=== PATIENT | female | born 1960 | race Caucasian/White ===

== ENCOUNTER 2017-06-08 13:06 | Outpatient (RCR) | payer OTHER, SELFPAY ==
[2017-06-08 13:35] LABS: Absolute Lymphocyte Count 2.46 X10^3/ul (0.83-4.51); Absolute Neutrophil Count 4.1 X10^3/uL (2.0-7.7); Basophil# 0.03 X10^3/uL; Basophil% 0.4 % (0-1); Eosinophil# 0.15 X10^3/uL; Eosinophils% 2.1 % (0-5); Hematocrit 46.2 % (37-47); Hemoglobin 15.4 g/dl (12.0-15.0); Lymphocyte # 2.46 X10^3/ul (4.0); Lymphocyte % 34.3 % (19-41); Mean Corp Hgb Conc 33.3 g/gl (32-36); Mean Corpuscular Volume 95.9 fL (81-99); Mean Platelet Vol. 10.4 fl (6.2-12.0); Monocyte# 0.45 X10^3/uL; Monocyte% 6.3 % (0-10); Neutrophil # 4.08 X10^3/uL (2.7-7.7); Neutrophil % 56.8 % (47-70); Platelet Count 255 K/mm3 (150-450); RBC Distribution Width CV 14.4 % (11.6-14.6); RBC Distribution Width SD 48.5 fl (35.1-43.9); Red Blood Count 4.82 M/mm3 (4.2-5.4); White Blood Count 7.2 K/mm3 (4.4-11.0)
[2017-06-08 13:36] LABS: POSITIVE COUNT NO; POSITIVE DIFFERENTIAL NO; POSITIVE MORPHOLOGY NO
[2017-06-08 13:59] LABS: AST(SGOT) 14 U/L (15-37); Alanine Aminotransfer ALT/SGPT 26 U/L (13-56); Albumin, Serum 3.9 g/dL (3.2-5.0); Alkaline Phosphatase 102 U/L (45-117); Anion Gap 6 (5-15); BUN 7 mg/dL (7-18); BUN/Creat Ratio 8.8 RATIO (10-20); Bilirubin, Direct 0.17 mg/dL (0.00-0.30); Calcium,Total 8.7 mg/dL (8.5-10.1); Chloride 104 mmol/L (98-107); EST Glomerular Filtration Rate 78 mL/min (>60); Est Glom Filt Rate - Afr Amer 95 mL/min (>60); Globulin 3.5 g/dL (2.2-4.2); Glucose 83 mg/dL (74-106); Protein, Total 7.4 g/dL (6.4-8.2); Sodium Level 141 mmol/L (136-145)
[2017-06-10 14:06] LABS: QNTFERON TB Ag Minus Nil Value 0 IU/mL (.); QNTFERON TB Ag Value 0.02 IU/mL (.); QNTFERON TB Mitogen Value > 10.00 IU/mL (.); QNTFERON TB Nil Value 0.02 IU/mL (.)
[2017-06-10 15:00] LABS: QNTIFERON TB Gold Negative (Negative)
== END 2017-06-08 14:00 | disposition home or self-care (01) ==
LOC: LAB 13:06
PROVIDERS: Family Provider Internal Medicine; PCP Internal Medicine; Visit Provider Dermatology
DX: Z79.899 Other long term (current) drug therapy (principal)
CPT/HCPCS: 36415; 80048; 80076; 85025; 86480

== ENCOUNTER → 2017-10-04 12:33 | Outpatient (CLI) | payer OTHER, SELFPAY ==
--- NOTE | 2017-10-04 12:37 | BI_ITS ---
MAMMOGRAPHY - BILATERAL SCREENING REASON FOR EXAM: Female, 57 years old. Routine annual screening examination. PERTINENT HISTORY: Non-contributory. History of ovarian carcinoma. TECHNIQUE: Digital bilateral breast mahesh (3D mammographic acquisition) in the CC and MLO projections. 2-D mediolateral oblique (MLO) and craniocaudad (CC) views of both breasts were obtained. CAD: Full Field Digital Mammography with Computer Added Detection was performed. COMPARISON: Comparison is made with prior study dated June 30, 2014 and December 24, 2009. FINDINGS: Breast Composition: The breasts are heterogeneously dense, which may obscure small masses. There are no dominant masses or suspicious calcifications. No other significant abnormalities are identified. There has been no significant change since the prior study. BI/SCREENING MAMM (CAD), BILAT IMPRESSION: Stable bilateral screening mammogram. Yearly follow-up mammogram recommended. (A) ASSESSMENT CATEGORY: BIRADS Category 2: Benign. A letter regarding these results will be sent to the patient by the facility within 30 days. Approximately 10% of breast cancers are not detected by mammography. A normal mammogram should not delay biopsy of a clinically suspicious abnormality. [id number] Electronically Signed: Zechariah Gilmore MD at 14:31 EDT Tel [phone], Service support ,
== END ==
PROVIDERS: Family Provider Family Medicine; PCP Family Medicine
DX: Z12.31 Encounter for screening mammogram for malignant neoplasm of breast (principal)
CPT/HCPCS: 77063; 77067

== ENCOUNTER → 2019-05-01 10:07 | Outpatient (CLI) | payer OTHER, SELFPAY ==
[2019-05-01 09:45] VITALS: BMI 35.4
[2019-05-01 12:29] LABS: Absolute Lymphocyte Count 2.16 X10^3/uL (0.83-4.51); Absolute Neutrophil Count 3.8 X10^3/uL (2.0-7.7); Basophil# 0.06 X10^3/uL; Basophil% 0.9 % (0-1); Eosinophil# 0.16 X10^3/uL; Eosinophils% 2.4 % (0-5); Hematocrit 46.3 % (37-47); Hemoglobin 15.1 g/dL (12.0-15.0); Lymphocyte # 2.16 X10^3/ul (4.0); Lymphocyte % 32.2 % (19-41); Mean Corp Hgb Conc 32.6 g/dL (32-36); Mean Corpuscular Hgb 29.8 pg (27.0-32.0); Mean Corpuscular Volume 91.3 fL (81-99); Monocyte% 7.5 % (0-10); NRBC Flagged by Analyzer 0 % (0-5); Neutrophil % 56.7 % (47-70); Platelet Count 301 K/mm3 (150-450); RBC Distribution Width CV 12.8 % (11.6-14.6); RBC Distribution Width SD 42.8 fl (35.1-43.9); Red Blood Count 5.07 M/mm3 (4.2-5.4); White Blood Count 6.7 K/mm3 (4.4-11.0)
[2019-05-01 12:40] LABS: AST(SGOT) 20 U/L (15-37); Alanine Aminotransfer ALT/SGPT 37 U/L (13-56); Albumin, Serum 3.7 g/dL (3.2-5.0); Alkaline Phosphatase 85 U/L (45-117); Anion Gap 3 (5-15); BUN 17 mg/dL (7-18); BUN/Creat Ratio 15.5 RATIO (10-20); Calcium,Total 9.6 mg/dL (8.5-10.1); Chloride 105 mmol/L (98-107); Cholesterol 230 mg/dL (200); EST Glomerular Filtration Rate 54 mL/min (>60); Est Glom Filt Rate - Afr Amer 65 mL/min (>60); Globulin 3.8 g/dL (2.2-4.2); Glucose 86 mg/dL (74-106); High Density Lipoprotein 74 mg/dL; Potassium 4.9 mmol/L (3.5-5.1); Protein, Total 7.5 g/dL (6.4-8.2); Sodium Level 140 mmol/L (136-145); Triglycerides 105 mg/dL; Very Low Density Lipoprotein 21 mg/dL (5-40)
== END ==
PROVIDERS: PCP Internal Medicine; Referring Provider Internal Medicine; Visit Provider Internal Medicine
DX: I10 Essential (primary) hypertension (principal); K21.9 Gastro-esophageal reflux disease without esophagitis
CPT/HCPCS: 36415; 80053; 80061; 85025

== ENCOUNTER → 2019-05-14 14:14 | Outpatient (CLI) | payer OTHER, SELFPAY ==
[2019-05-01 09:45] VITALS: BMI 35.4
[2019-05-07 14:33] VITALS: BMI 36.3
--- NOTE | 2019-05-14 14:14 | BI_ITS ---
MAMMOGRAPHY - BILATERAL SCREENING REASON FOR EXAM: Female, 58 years old. Routine annual screening examination. PERTINENT HISTORY: None TECHNIQUE: Digital bilateral breast chantale (3D mammographic acquisition) in the CC and MLO projections. 2-D mediolateral oblique (MLO) and craniocaudad (CC) views of both breasts were obtained. CAD: Full Field Digital Mammography with Computer Added Detection was performed. COMPARISON: None. FINDINGS: Breast Composition: Densitometry lumbar structure Breast thoracentesis images there is an irregular density noted in the middle third of the superior lateral aspect the left breast. This is of uncertain etiology. It could represent focal fibrocystic change, however, underlying tumor cannot been completely excluded and for this reason a targeted left breast ultrasound is recommended for additional evaluation. The right breast is normal. No other significant abnormalities are identified. BI/SCREEN MAMM (CAD) W/CHANTALE BILAT IMPRESSION: Breast thoracentesis images there is a questionable spiculated density seen in the superior lateral aspect of the left breast and a targeted left breast ultrasound is recommended for further violation. ASSESSMENT CATEGORY: FINAL ASSESSMENT: BI-RAD CATEGORY 0 INCOMPLETE: (NEEDS ADDITIONAL IMAGINING EVALUATION) Approximately 10% of breast cancers are not detected by mammography. A normal mammogram should not delay biopsy of a clinically suspicious abnormality. [id number] Electronically Signed: Yakov Tipton, at 17:20 EST Tel , Service support ,
--- NOTE | 2019-05-14 14:17 | BD_ITS ---
STUDY: DUAL ENERGY X-RAY ABSORPTIOMETRY / DXA REASON FOR EXAM: Female, 58 years old. Age of arina- 34, partial hysterectomy age 25. Pat is 231# and 66 and quot; a loss of 3 and quot; per pat. Past hx of smoking. Takes a multi-vit. Exercises a little. TECHNIQUE: Bone Mineral Density (BMD) measurements of lumbar spine and bilateral hips were obtained. COMPARISON: None. FINDINGS: Lumbar Spine (L1-L4): g/cm2 (1.298) / T-score (1.0) / Z-score (2.2) Findings are suggestive of normal bone density with a low fracture risk. Left Femur Total: g/cm2 (0.989) / T-score (0.1) / Z-score (0.8) Left Femoral Neck: g/cm2 (0.946) / T-score (-0.7) / Z-score (0.6) Right Femur Total: g/cm2 (0.916) / T-score (-0.7) / Z-score (0.2) Right Femoral Neck: g/cm2 (0.878) / T-score (-1.1) / Z-score (0.1) BD/Dexa Bone Density Study IMPRESSION: The patient is considered osteopenic as outlined below according to World Ozzie Organization (WHO) criteria with a low fracture risk. Reference Information: The T-score is the number of standard deviations above or below the standard which is normal for young adults at their peak bone mineral density. The World Health Organization (WHO) interprets the T-scores as follows: Above -1 Normal bone density Between -1 and -2.5 Osteopenia Equal to / or below -2.5 Osteoporosis As a practical clinical guideline, osteopenia may be graded as follows: Mild -1 through -1.5 Moderate -1.6 through -2.0 Severe -2.1 through -2.4 The Z-score is the number of standard deviations above or below age-matched controls. A Z-score of less than -1.5 would be considered abnormal. References: 1. NIH Osteoporosis and Related Bone Diseases http://www.osteo.org 2. International Society for Clinical Densitometry http://www.iscd.org 3. National Osteoporosis Foundation http://www.nof.org Electronically Signed: Zechariah Gilmore, at 13:44 EST , Service support ,
== END ==
PROVIDERS: PCP Internal Medicine; Referring Provider Internal Medicine; Visit Provider Internal Medicine
DX: Z12.31 Encounter for screening mammogram for malignant neoplasm of breast (principal); Z78.0 Asymptomatic menopausal state
CPT/HCPCS: 77063; 77067; 77080

== ENCOUNTER → 2019-05-16 12:17 | Outpatient (CLI) | payer OTHER, SELFPAY ==
[2019-05-07 14:33] VITALS: BMI 36.3
--- NOTE | 2019-05-16 12:18 | US_ITS ---
STUDY: ULTRASOUND BREAST - LEFT REASON FOR EXAM: Female, 58 years old. TECHNIQUE: Axial and longitudinal images of the LEFT breast were performed with a high resolution ultrasound transducer. # OF IMAGES: 59 COMPARISON: Recent left breast mammogram obtained on 05/14/2019 FINDINGS: LEFT Breast: There is a lesion in the superior lateral quadrant. The lesion measures 1 cm in size. Clock notation: 1: o''clock position. Distance from nipple: 360 cm. This lesion is hypoechoic and has mildly irregular margins. It corresponds to an irregular density best seen on the left MLO, tomosymphysis images and is of uncertain etiology. It does not have good through transmission. Although it has a heterogeneous internal hypoechoic density and it could represent a cyst and underlying neoplasm cannot be completely excluded. For this reason an ultrasound directed biopsy is recommended for further evaluation Posterior Enhancement: None Posterior Shadowing: None Margins: Regular Echogenicity: Hypoechoic Compression effect on Shape: Cannot be compressed US/Breast Limited Unilateral IMPRESSION: An ill-defined 1 cm irregular hypoechoic lesion is seen in the left breast 1:00 position. Although this could represent a cyst, an underlying malignancy cannot completely excluded and an ultrasound directed breast biopsy is recommended for further evaluation ASSESSMENT CATEGORY: BIRADS Category 4: Suspicious - Biopsy Should Be Considered. A letter regarding these results will be sent to the patient by the facility within 30 days. Electronically Signed: Yakov Danuta, at 16:56 EST Tel , Service support ,
== END ==
PROVIDERS: PCP Internal Medicine; Referring Provider Internal Medicine; Visit Provider Internal Medicine
DX: R92.8 Other abnormal and inconclusive findings on diagnostic imaging of breast (principal)
CPT/HCPCS: 76642

== ENCOUNTER → 2019-05-20 13:52 | Outpatient (CLI) | payer OTHER, SELFPAY ==
[2019-05-07 14:33] VITALS: BMI 36.3
--- NOTE | 2019-05-20 13:53 | CT_ITS ---
STUDY: CT ABDOMEN AND PELVIS WITH CONTRAST REASON FOR EXAM: Female, 58 years old. HX OVARIAN CA, ABD PAIN, RADHA/BSO, BLADDER SLING RADIATION DOSAGE (If Supplied By Facility): CTDIvol = ( 24.61 ) mGy, DLP = ( 1121.23 ) mGycm TECHNIQUE: Transaxial images were obtained from the dome of the diaphragm to the symphysis pubis without oral contrast. Oral and amp;amp;amp; IV Readi-CAT and amp;amp;amp; 100mL Isovue-300 was administered. Sagittal and coronal images were reconstructed. Individualized dose optimization techniques were used for this CT. COMPARISON: December 30, 2015 FINDINGS: The visualized lung bases are unremarkable. The visualized portions of the heart are within normal limits. Nonspecific fatty infiltration of the liver. There is a small cyst in left lobe. Bile ducts are not dilated Normal gallbladder and extrahepatic biliary system. Normal spleen. Normal pancreas. Right adrenal is normal. There is a nodule in left adrenal measuring 1.6 x 2 cm Normal right kidney. Normal left kidney. Normal visualized stomach. Normal small intestine. Diverticular changes of the descending and sigmoid colon without evidence for acute diverticulitis. The appendix is visualized and appears normal. Atherosclerotic changes of the aorta without evidence for aneurysm. Normal inferior vena cava. Normal retroperitoneum. Normal urinary bladder. Postop change status post RADHA/BSO Tiny fat-containing umbilical hernia. Lumbar spine demonstrates moderate spondylosis Stable appearance to left hepatic cyst and left adrenal nodule since prior study. No other significant interval change CT/Abdomen/Pelvis WITH Contrast IMPRESSION: Postop changes status post RADHA/BSO.. Stable appearance to left hepatic cyst and left adrenal nodule. Diverticular disease of the descending and sigmoid colon without evidence for acute diverticulitis. Electronically Signed: Eber Charles MD at 17:12 EST , Service support ,
--- NOTE | 2019-05-20 14:26 | RAD_ITS ---
STUDY: X-RAY CHEST REASON FOR EXAM: Female, 58 years old. Ovarian cancer. TECHNIQUE: Frontal and lateral views of the chest. COMPARISON: 08/28/2014. FINDINGS: The lungs are clear and expanded. There is no demonstrated pleural abnormality. Normal size heart. Normal mediastinum and holly. Normal visualized pulmonary arteries. Normal visualized aortic arch and descending thoracic aorta. Normal visualized thoracic spine. Normal visualized ribs, clavicles, and shoulders. There is no demonstrated abnormality of the visualized soft tissue structures of the upper abdomen. RAD/Chest PA and Lateral IMPRESSION: No definite acute or significant abnormality seen. Electronically Signed: Gómez Vega MD at 14:42 EST , Service support ,
== END ==
PROVIDERS: PCP Internal Medicine; Referring Provider Internal Medicine Medical Oncology; Visit Provider Internal Medicine Medical Oncology
DX: R14.0 Abdominal distension (gaseous) (principal); Z85.43 Personal history of malignant neoplasm of ovary
CPT/HCPCS: 71046; 74177; Q9967

== ENCOUNTER → 2019-06-07 13:26 | Outpatient (CLI) | payer MEDICAID, SELFPAY ==
[2019-05-22 08:42] VITALS: BMI 36.3
[2019-05-28 11:17] VITALS: BMI 36.9
--- NOTE | 2019-06-07 13:35 | US_ITS ---
STUDY: ULTRASOUND BREAST - LEFT REASON FOR EXAM: Female, 58 years old. Ultrasound guided left breast biopsy. TECHNIQUE: Axial and longitudinal images of the LEFT breast were performed with a high resolution ultrasound transducer. # OF IMAGES: 19 COMPARISON: Comparison is made with prior ultrasound of the breast dated May 16, 2019. FINDINGS: LEFT Breast: Under direct sonographic guidance, the surgeon performed core biopsies of the 6 mm x 7 mm x 4 mm hypoechoic nodule at the 1:00 position of the breast at 3 cm from nipple. US/US Breast Biopsy 1st Lesion IMPRESSION: Successful ultrasound-guided breast biopsy. ASSESSMENT CATEGORY: BIRADS Category 2: Benign. A letter regarding these results will be sent to the patient by the facility within 30 days. Electronically Signed: Zechariah Gilmore, at 15:30 EDT , Service support ,
--- NOTE | 2019-06-07 14:10 | PCM.OPRPT ---
Report of Operation Date of Procedure: 06/07/19 Pre-Operative Diagnosis: Left breast mass Post-Operative Diagnosis: Same Surgery/Procedure Performed:: Ultrasound-guided left breast biopsy Type of Anesthesia:: Local Specimen's removed: Left breast mass 1:00 3 cm from the nipple Estimated Blood Loss (mL): Minimal Description of Procedure: Procedure: ultrasound-guided core biopsy Indications: 58 year-old female with partially hypoechoic nodule at 1:00 in the left breast 3 centimeters from the nipple. Risk benefits were discussed the patient and she elected to proceed with ultrasound guided core biopsy with clip placement Description of procedure: Patient was brought into the ultrasound room in the left breast was marked. A timeout was completed verifying correct patient, procedure, site, specially, prior to beginning procedure. The left breast was prepped and draped in usual sterile fashion and using local anesthesia was obtained with 1% lidocaine with epi. The lesion was located with the ultrasound. Small incision was made with 11 blade to introduced the mammotome through the skin. Under ultrasound guidance multiple core samples were obtained using then 13-gauge mammotome and sent in formalin for pathology. The mammotome mammostar clip was then deployed into the biopsy cavity under ultrasound guidance and a picture was taken. Upon completion procedure hemostasis was obtained and a Steri-Strip and OpSite were placed. Patient was then taken to the mammography suite for clip verification. The clip was verified. The patient tolerated the procedure well and was discharged from the breast imaging department good condition. complications: none - Complications none
--- NOTE | 2019-06-07 14:20 | BRBX_PTH ---
PATIENT: DANICA BOBBY LOC: [facility] U#:[id number] AGE/SX: 64/F ROOM: RE06/07/[address]: Dr. Светлана Donaldson MD : 1960 BED: DIS: SPEC #: [id number] RECD: 06/09/19 14:58 STATUS: SCOTT MICHELET #: [id number] NATO: 06/07/19 14:[address]: Светлана Donaldson DEPT: SURGICAL PATHOLOGY RECD BY: Cynthia Garcia ENTERED: 06/10/19 07:50 SP TYPE: BREAST BX OTHR DR: Dr. Felicity Dexter MD Tissues: Left breast, NOS Procedures: Surgery Specimen Level IV HEADER OPERATION: Left breast biopsy PRE-OP DIAGNOSIS: Left breast lesion at 1 o'clock TISSUE SUBMITTED: Left breast 1 o'clock - mostly cystic MICROSCOPIC DIAGNOSIS Left breast, 1 o'clock, core biopsy: Fibrocystic changes, adenosis and intraductal hyperplasia without atypia. Focal microcalcifications. Negative for malignancy. See comment. RUBIA:kun 06/11/19 COMMENT Correlation with clinical, radiologic findings and appropriate follow up are necessary. MICROSCOPIC DESCRIPTION Slides are reviewed. GROSS DESCRIPTION Received in fixative is one container labeled with the patient's name and designated left breast. The specimen consists of multiple elongated fragments of johns-yellow fibroadipose tissue that in aggregate measure 1 x 0.5 x 0.1 cm. The entire specimen is submitted in one cassette. / RUBIA:kun 06/10/19 TC:5 CPT: 72765
== END ==
PROVIDERS: PCP Internal Medicine; Referring Provider Surgery; Visit Provider Surgery
DX: N63.20 Unspecified lump in the left breast, unspecified quadrant (principal)
CPT/HCPCS: 19083; 88305

== ENCOUNTER → 2019-09-19 13:57 | Outpatient (CLI) | payer OTHER, SELFPAY ==
[2019-05-28 11:17] VITALS: BMI 36.9
[2019-09-19 15:15] LABS: Hemoglobin 14.6 g/dL (12.0-15.0); Mean Corp Hgb Conc 31.1 g/dL (32-36); Mean Corpuscular Hgb 29.1 pg (27.0-32.0); Mean Corpuscular Volume 93.8 fL (81-99); Mean Platelet Vol. 11.2 fl (6.2-12.0); Platelet Count 307 K/mm3 (150-450); RBC Distribution Width CV 13.3 % (11.6-14.6); RBC Distribution Width SD 45.3 fl (35.1-43.9); Red Blood Count 5.01 M/mm3 (4.2-5.4); White Blood Count 7.5 K/mm3 (4.4-11.0)
[2019-09-19 16:53] LABS: ALB/GLOB Ratio 0.9 RATIO (0.9-2.4); AST(SGOT) 16 U/L (15-37); Alanine Aminotransfer ALT/SGPT 30 U/L (13-56); Albumin, Serum 3.4 g/dL (3.2-5.0); Alkaline Phosphatase 79 U/L (45-117); Anion Gap 5 (5-15); BUN 14 mg/dL (7-18); Calcium,Total 8.7 mg/dL (8.5-10.1); Chloride 106 mmol/L (98-107); Creatinine, Serum 0.93 mg/dL (0.55-1.02); EST Glomerular Filtration Rate 65 mL/min (>60); Est Glom Filt Rate - Afr Amer 79 mL/min (>60); Globulin 3.6 g/dL (2.2-4.2); Glucose 99 mg/dL (74-106); Potassium 3.4 mmol/L (3.5-5.1); Sodium Level 141 mmol/L (136-145)
[2019-09-20 10:05] LABS: HIV - WCH Non-Reactive (Nonreactive); Hepatitis B Surface Antigen Non-Reactive (Nonreactive); Hepatitis C Antibody Non-Reactive (Nonreactive)
[2019-09-25 20:07] LABS: QNTFERON TB Mitogen Value > 10.00 IU/mL (.); QNTFERON TB Nil Value 0.02 IU/mL (.); QNTFERON TB1+ Ag Value 0.02 IU/mL (.); QNTFERON TB2+ Ag Value 0.02 IU/mL (.)
[2019-09-25 21:15] LABS: Hepatitis B Core Ab Total Negative (Negative); QNTIFERON TB Positive Criteria Negative (Negative)
== END ==
PROVIDERS: PCP Internal Medicine
DX: L40.9 Psoriasis, unspecified (principal)
CPT/HCPCS: 36415; 80053; 85027; 86480; 86703; 86704; 86803; 87340

== ENCOUNTER → 2019-12-18 14:15 | Outpatient (CLI) | payer OTHER, SELFPAY ==
[2019-05-28 11:17] VITALS: BMI 36.9
--- NOTE | 2019-12-18 14:16 | US_ITS ---
STUDY: ULTRASOUND BREAST - LEFT REASON FOR EXAM: Female, 59 years old. Six-month follow-up for biopsy of a nodule at the 1 o''clock position of the breast at 3 cm from the nipple. TECHNIQUE: Axial and longitudinal images of the LEFT breast were performed with a high resolution ultrasound transducer. # OF IMAGES: 96 COMPARISON: Comparison is made with prior ultrasound of the left breast dated 06/07/2019 and 05/16/2019. FINDINGS: LEFT Breast: 3 mm x 5 mm x 3 mm hypoechoic well-defined nodule at the 1 o''clock position breast at 3 cm from nipple. This is unchanged. US/Breast Complete Unilateral IMPRESSION: Stable examination ASSESSMENT CATEGORY: BIRADS Category 2: Benign. A letter regarding these results will be sent to the patient by the facility within 30 days. Electronically Signed: Zechariah Gilmore, at 7:29 EDT , Service support ,
== END ==
PROVIDERS: PCP Internal Medicine; Referring Provider Surgery; Visit Provider Surgery
DX: N63.20 Unspecified lump in the left breast, unspecified quadrant (principal)
CPT/HCPCS: 76641

== ENCOUNTER → 2020-07-21 10:07 | Outpatient (CLI) | payer OTHER, SELFPAY ==
[2020-07-21 09:38] VITALS: BMI 36.9
[2020-07-21 12:20] LABS: Absolute Lymphocyte Count 1.54 X10^3/uL (0.83-4.51); Absolute Neutrophil Count 8.8 X10^3/uL (2.0-7.7); Basophil# 0.06 X10^3/uL; Basophil% 0.5 % (0-1); Eosinophil# 0.03 X10^3/uL; Eosinophils% 0.3 % (0-5); Hematocrit 44.3 % (37-47); Hemoglobin 14.1 g/dL (12.0-15.0); Lymphocyte # 1.54 X10^3/ul (0.83-4.51); Lymphocyte % 13.6 % (19-41); Mean Corp Hgb Conc 31.8 g/dL (32-36); Mean Corpuscular Hgb 29.1 pg (27.0-32.0); Mean Corpuscular Volume 91.3 fL (81-99); Monocyte# 0.81 X10^3/uL; Monocyte% 7.2 % (0-10); NRBC Flagged by Analyzer 0 % (0-5); Neutrophil # 8.79 X10^3/uL (2.7-7.7); Neutrophil % 77.7 % (47-70); Platelet Count 249 K/mm3 (150-450); RBC Distribution Width CV 13.5 % (11.6-14.6); RBC Distribution Width SD 45.9 fl (35.1-43.9); Red Blood Count 4.85 M/mm3 (4.2-5.4); White Blood Count 11.3 K/mm3 (4.4-11.0)
[2020-07-21 12:38] LABS: ALB/GLOB Ratio 0.6 RATIO (0.9-2.4); AST(SGOT) 41 U/L (15-37); Alanine Aminotransfer ALT/SGPT 69 U/L (13-56); Albumin, Serum 2.8 g/dL (3.2-5.0); Alkaline Phosphatase 107 U/L (45-117); Anion Gap 8 (5-15); BUN 16 mg/dL (7-18); BUN/Creat Ratio 15.7 RATIO (10-20); Calcium,Total 9.3 mg/dL (8.5-10.1); Chloride 99 mmol/L (98-107); Creatinine, Serum 1.02 mg/dL (0.55-1.02); EST Glomerular Filtration Rate 59 mL/min (>60); Est Glom Filt Rate - Afr Amer 71 mL/min (>60); Globulin 4.5 g/dL (2.2-4.2); Glucose 103 mg/dL (74-106); Potassium 3.4 mmol/L (3.5-5.1); Protein, Total 7.3 g/dL (6.4-8.2); Sodium Level 135 mmol/L (136-145)
== END ==
PROVIDERS: PCP Internal Medicine; Referring Provider Internal Medicine; Visit Provider Internal Medicine
DX: L03.90 Cellulitis, unspecified (principal)
CPT/HCPCS: 36415; 80053; 85025

== ENCOUNTER 2020-07-29 12:46 | Inpatient (IN) | payer OTHER, SELFPAY ==
[2020-07-29 09:18] VITALS: BMI 36.9
[2020-07-29 12:47] VITALS: BP 178/105; PULSE 89; RESP 15; TEMP 36.7; O2SAT 97; BMI 36.9
--- NOTE | 2020-07-29 13:14 | VDLE_ITS ---
Reason For Study: Pain RIGHT GSV is normal. CFV is compressible, spontaneous, phasic, competent and demonstrates normal augmentation. FV is compressible, spontaneous, phasic, competent and demonstrates normal augmentation. POP V is compressible, spontaneous, phasic, competent and demonstrates normal augmentation. T/P Trunk is compressible. PTV is compressible. RT PerV is compressible. Procedure This is a venous duplex using B-mode, color flow and spectral Doppler. Exam performed portable in ED. Calf veins technically difficult to visualize due to edema and pain. A preliminary report was called and/or faxed to ED. VL/Venous Duplex US, Unilateral Interpretation Summary There is no evidence of right lower extremity deep vein thrombosis. Right great saphenous vein appears patent and compressible segmentally. Technically difficult examination with difficult ability to visualize right calf veins secondary to edema and patient pain Ordering Physician: Hipolito Galo Referring Physician: Felicity Dexter Performed By: Rosina Dawson RVT
--- NOTE | 2020-07-29 13:17 | EX.ED.DYSGE1 ---
HPI History of Present Illness Chief Complaint: Cellulitis Informant: patient Onset/Context/Timing Onset: Days (12) Context: Gradual Onset Timing: Continuous Quality: sore Location: RLE Current Severity: Moderate Maximum Severity: Moderate Worsened by: walking, palpation Relieved by: resting Associated Symptoms Associated Symptoms: subj fevers/chills - last episode 3d ago Narrative Narrative: Patient sent by PCP office for evaluation of cellulitis on right lower extremity and possible admission for IV antibiotics due to failure of outpatient therapy. Patient states the day that the rash started, she went to urgent care and it was on her right medial thigh in addition to her lower leg, was told did look like shingles and put on ibuprofen. She had a follow-up appointment 3 days later with her PCP, they were concerned about the appearance of the erythema and pain distally, put her on doxycycline and Keflex, patient states soon after she started those the area on her right medial thigh resolved. However in the past week, the pain, swelling, redness in the lower leg has continued to worsen and spread proximally. She states she is on Humira injections every week for psoriasis. She takes no other regular medications. [facility] Medical History Anxiety Cancer Cellulitis Chronic bronchitis GERD (gastroesophageal reflux disease) Insomnia Joint pain Neuropathy Psoriasis Seasonal allergies Sinusitis Home Medications acetaminophen 650 mg PO PRN PRN 09/05/16 [History Last Taken Unknown] adalimumab 40 mg/0.4 mL subcutaneous pen kit See Rx Instructions SUBCUT .COMPLEX 07/21/20 [History Last Taken Unknown] multivitamin 1 tab PO DAILY 07/21/20 [History Last Taken Unknown] tramadol 50 mg tablet 50 mg PO Q8H PRN #20 tab 07/21/20 [Rx Last Taken Unknown] Allergy/AdvReac Type Severity Reaction Status Date / Time potassium chloride AdvReac Nausea Verified 07/29/20 12:52 [From K-Tab] chemo drug Allergy Severe swelling Uncoded 07/29/20 12:52 Family History Father Alcoholism Heart disease Myocardial infarction, Onset Age: 55 Mother Lung cancer Mother Osteoporosis Arthritis Hypertension Brother Arthritis Heart disease Myocardial infarction, Onset Age: 50 CVA (cerebral vascular accident) Esophageal cancer Surgical History H/O: hysterectomy History of laparotomy Social History Smoking Status: Current every day smoker alcohol intake: current alcohol intake frequency: holidays/special occasions only substance use type: does not use what type of physical activity do you participate in: none ROS ROS ED Constitutional Constitutional ED: Reports chills, fever(s) and subjective; Denies sweats or weakness Eyes Eyes: Denies change in vision or diplopia ENT ENT ED: Denies rhinorrhea or sore throat Cardiovascular Cardiovascular: Denies chest pain or palpitations Respiratory/Chest Respiratory/Chest: Denies cough or dyspnea Gastrointestinal Gastrointestinal: Denies abdominal pain, diarrhea, nausea or vomiting Genitourinary Genitourinary ED: Denies dysuria or hematuria Musculoskeletal Musculoskeletal: Reports as per HPI and extremity pain; Denies back pain or neck pain Integumentary Reports as per HPI and rash; Denies abscess Neurologic Neurologic: Denies headache(s), paresthesias or weakness Psychiatric Psychiatric: Denies anxiety or suicidal thoughts EXAM Physical Exam Const Vital Signs: 07/29/20 12:47 Temperature 98.0 F Temperature Source Temporal Pulse Rate 89 Respiratory Rate 15 Blood Pressure 178/105 H Blood Pressure Mean 129 Pulse Ox 97 Oxygen Delivery Method Room Air Positive well nourished and well developed General Appearance ED: well developed and NAD HEENT Reports moist mucous membranes normocephalic and atraumatic Eyes PERRL and EOMs intact bilaterally Neck full ROM and supple Resp normal respiratory effort and clear to auscultation bilaterally Cardio regular rate, regular rhythm and no murmurs GI non-tender and non-distended Auscultation: normoactive bowel sounds Palpation: soft Back/Spine no CVA tenderness General Back: other FROM Extremity full ROM and normal capillary refill Extremity Narrative: Edematous right lower extremity to the knee, with dense erythema consistent with acute cellulitis in the right lower leg, circumferential, with associate entertainment editor blanching erythema that has progressed proximally to the knee, the proximal borders are not well circumscribed. There is some erythema in the foot but it is less tender. All compartments soft. There are signs of residual erythema medial thigh but no lesions or scabs. General Extremety ED: Yes edema; Negative for pulses abnormal or tenderness General Extremity: edema; Negative for pulses abnormal Neuro oriented x3, CN's II-XII intact bilaterally and no sensory deficits noted Sensorium / Orientation: awake and alert Motor Exam: strength 5/5 throughout Skin no rashes or lesions noted Skin Narrative: Superficial patch of what patient calls psoriasis right proximal olvera, no abscess or obvious nidus for infection here, there is only very superficial epidermal loss like a ruptured blister that has been healing, the worst of her rash is very distal to this and not around it. Rashes: rashes noted R lower leg Narrative: See above for further description of rash MDM MDM MDM Narrative Medical decision making narrative: I think this rash is consistent with infection, she clearly has failed the oral antibiotic she has been on as an outpatient, doxycycline and cephalexin. Patient has pictures from several days in a row in the past week showing progressively worsening and ascending erythema to her knee. At this point, what is currently visible is inconsistent with zoster. Ultrasound of the right lower extremity was obtained and the preliminary interpretation based on the findings is that there is no DVT. Discussed with hospitalist for admission and IV antibiotics started after we discussed, using Unasyn and clindamycin. Lab Data Attestation: I reviewed the patient's lab results. Labs: Laboratory Results - last 24 hr 07/29/20 07/29/20 07/29/20 13:20 13:20 13:20 WBC 8.8 RBC 4.75 Hgb 13.8 Hct 43.9 MCV 92.4 MCH 29.1 MCHC 31.4 L RDW Std Deviation 45.7 H RDW Coeff of Lillian 13.4 Plt Count 511 H MPV 9.7 Immature Gran % (Auto) 0.600 Neut % (Auto) 66.5 Lymph % (Auto) 23.5 [place] % (Auto) 7.8 Eos % (Auto) 1.0 Baso % (Auto) 0.6 Absolute Neuts (auto) 5.8 Absolute Lymphs (auto) 2.06 Nucleated RBC % 0 PT 11.9 INR 0.9 APTT 29.6 Sodium 136 Potassium 3.8 Chloride 103 Carbon Dioxide 30.0 Anion Gap 3 L BUN 10 Creatinine 0.92 Estim Creat Clear Calc 60.11 Est GFR (MDRD) Af Amer 80 Est GFR (MDRD) Non-Af 66 BUN/Creatinine Ratio 10.9 Glucose 94 Lactic Acid Calcium 8.7 07/29/20 13:20 WBC RBC Hgb Hct MCV MCH MCHC RDW Std Deviation RDW Coeff of Lillian Plt Count MPV Immature Gran % (Auto) Neut % (Auto) Lymph % (Auto) [place] % (Auto) Eos % (Auto) Baso % (Auto) Absolute Neuts (auto) Absolute Lymphs (auto) Nucleated RBC % PT INR APTT Sodium Potassium Chloride Carbon Dioxide Anion Gap BUN Creatinine Estim Creat Clear Calc Est GFR (MDRD) Af Amer Est GFR (MDRD) Non-Af BUN/Creatinine Ratio Glucose Lactic Acid 0.8 Calcium Discharge Plan Triage Chief Complaint: Cellulitis ED Provider: Hipolito Galo Dx/Rx/DC Orders Clinical Impression: Cellulitis of right lower extremity, Failure of outpatient treatment Prescriptions: No Action Humira(CF) Pen 40 mg/0.4 mL pen injector kit See Rx Instructions subcut .COMPLEX RF: 0 multivitamin [Daily Multi-Vitamin] Tablet 1 tab PO DAILY RF: 0 tramadol 50 mg tablet 50 mg PO Q8H PRN (Reason: pain) Qty: 20 RF: 0 acetaminophen 325 MG tablet 650 mg PO PRN PRN (Reason: Pain) RF: 0 Primary Care Provider: Felicity Dexter Referrals: Felicity Dexter MD [Primary Care Provider] - Disposition Disposition: [facility]
--- NOTE | 2020-07-29 13:35 | RAD_ITS ---
STUDY: X-RAY - RIGHT TIBIA AND FIBULA REASON FOR EXAM: Female, 60 years old. Lower extremity swelling. Cellulitis. TECHNIQUE: 2 view(s) of the tibia and fibula were obtained. COMPARISON: None. FINDINGS: Normal visualized tibia. Normal visualized fibula. Diffuse soft tissue edema. RAD/Tibia & Fibula 2 Views IMPRESSION: Diffuse soft tissue edema. Electronically Signed: Zechariah Gilmore MD at 13:46 EDT , Service support ,
[2020-07-29 13:36] LABS: Absolute Lymphocyte Count 2.06 X10^3/uL (0.83-4.51); Absolute Neutrophil Count 5.8 X10^3/uL (2.0-7.7); Basophil# 0.05 X10^3/uL; Basophil% 0.6 % (0-1); Eosinophil# 0.09 X10^3/uL; Hematocrit 43.9 % (37-47); Hemoglobin 13.8 g/dL (12.0-15.0); Lymphocyte # 2.06 X10^3/ul (0.83-4.51); Lymphocyte % 23.5 % (19-41); Mean Corp Hgb Conc 31.4 g/dL (32-36); Mean Corpuscular Hgb 29.1 pg (27.0-32.0); Mean Corpuscular Volume 92.4 fL (81-99); Mean Platelet Vol. 9.7 fl (6.2-12.0); Monocyte# 0.68 X10^3/uL; Monocyte% 7.8 % (0-10); NRBC Flagged by Analyzer 0 % (0-5); Neutrophil # 5.83 X10^3/uL (2.7-7.7); Neutrophil % 66.5 % (47-70); Platelet Count 511 K/mm3 (150-450); RBC Distribution Width CV 13.4 % (11.6-14.6); RBC Distribution Width SD 45.7 fl (35.1-43.9); Red Blood Count 4.75 M/mm3 (4.2-5.4); White Blood Count 8.8 K/mm3 (4.4-11.0)
[2020-07-29 13:46] LABS: International Normalized Ratio 0.9; Partial Thromboplast Time 29.6 Seconds (24.1-36.2); Prothrombin Time (Protime)PT. 11.9 SECONDS (11.7-14.9)
[2020-07-29 13:47] LABS: Anion Gap 3 (5-15); BUN 10 mg/dL (7-18); BUN/Creat Ratio 10.9 RATIO (10-20); Calcium,Total 8.7 mg/dL (8.5-10.1); Chloride 103 mmol/L (98-107); Creatinine, Serum 0.92 mg/dL (0.55-1.02); EST Glomerular Filtration Rate 66 mL/min (>60); Est Glom Filt Rate - Afr Amer 80 mL/min (>60); Estimated Creatinine Clearance 60.11 ml/min; Glucose 94 mg/dL (74-106); Potassium 3.8 mmol/L (3.5-5.1); Sodium Level 136 mmol/L (136-145)
[2020-07-29 14:01] LABS: Lactic Acid 0.8 mmol/L (0.4-1.9)
[2020-07-29] MEDS: Morphine 4 MG/ML Syringe IV (14:52)
[2020-07-29 14:59] VITALS: BP 158/93; PULSE 84; RESP 16; TEMP 36.6; O2SAT 98
--- NOTE | 2020-07-29 14:59 | PCM.HP.STD ---
[facility] - [facility] Date of Admission: 07/29/20 Chief Complaint: Sent from PCPs office for worsening right leg cellulitis. [facility] Narrative DANICA BOBBY, is a 60 F with past medical history as mentioned below was referred to the emergency room by her PCPs office for worsening right leg cellulitis although she has been on p.o. doxycycline and Keflex for a week. Patient started having small spot of a skin rash on her right leg around 8 days ago, started to spread around with redness and she went to urgent care where she was diagnosed with shingles and she was started on ibuprofen. 3 days later, she followed up with her PCP and there was a concern that she may have acute cellulitis of the right leg and she was started on doxycycline and Keflex which has been on for 7 days and completed those antibiotics yesterday. She continued to have increasing swelling and redness of the right leg in spite of antibiotics, increasing pain as well. She complains of right leg pain, dull aching pain, not radiating, 7 out of 10 in severity, aggravated by movement and touch and without relieving factors. She denies fever or chills. She does have a history of psoriasis and she has been on Humira, last injection was 2 weeks ago. In the emergency department, blood pressure was left elevated, other vital signs were stable. Routine blood work was unremarkable. Lactic acid was normal. Venous Doppler of the right leg done and reportedly, it is negative for DVT, official report is pending. Patient is being admitted for acute right lower extremity cellulitis with failure of outpatient treatment. [facility] Medical History (Updated 07/29/20 @ 15:[address] Sheri Lopez MD) Anxiety Cancer Chronic bronchitis GERD (gastroesophageal reflux disease) Insomnia Joint pain Neuropathy Psoriasis Seasonal allergies Home Medications adalimumab 40 mg/0.4 mL subcutaneous pen kit 40 mg SUBCUT .[id number] 07/21/20 [History Last Taken 07/12/20] multivitamin 1 tab PO DAILY 07/21/20 [History Last Taken 07/28/20] tramadol 50 mg tablet 50 mg PO Q8H PRN #20 tab 07/21/20 [Rx Last Taken 07/28/20] calcium carbonate [Caltrate 600] 600 mg PO DAILY 07/29/20 [History Last Taken 07/28/20] ibuprofen 600 mg PO Q4H PRN 07/29/20 [History Last Taken 07/29/20] Allergy/AdvReac Type Severity Reaction Status Date / Time potassium chloride AdvReac Nausea Verified 07/29/20 12:52 [From K-Tab] chemo drug Allergy Severe swelling Uncoded 07/29/20 12:52 Family History Father Alcoholism Heart disease Myocardial infarction, Onset Age: 55 Mother Lung cancer Mother Osteoporosis Arthritis Hypertension Brother Arthritis Heart disease Myocardial infarction, Onset Age: 50 CVA (cerebral vascular accident) Esophageal cancer Surgical History H/O: hysterectomy History of laparotomy Social History Smoking Status: Current every day smoker alcohol intake: current alcohol intake frequency: holidays/special occasions only substance use type: does not use what type of physical activity do you participate in: none ROS Constitutional Constitutional: Denies anorexia, chills, fatigue, fever(s) or malaise Eyes Eyes: Denies blurry vision, change in eye color, change in vision, double vision or eye pain ENT HEENT: Denies ear pain, epistaxis, headache(s), nasal congestion, post nasal drip or sore throat Cardiovascular Cardiovascular: Denies chest pain, dyspnea on exertion, edema, lightheadedness, orthopnea, palpitations, paroxysmal nocturnal dyspnea or syncope Respiratory/Chest Respiratory/Chest: Denies cough, dyspnea, hemoptysis, productive cough, shortness of breath at rest, shortness of breath with exertion or wheezing Gastrointestinal Gastrointestinal: Denies abdominal pain, constipation, diarrhea, hematemesis, hematochezia, melena, nausea or vomiting Genitourinary Genitourinary: Denies burning urination, dysuria, hematuria, urinary hesitancy or urinary urgency Musculoskeletal Musculoskeletal: Reports extremity pain and other Details: Right leg pain, swelling. ; Denies arthralgias, back pain, joint pain, joint swelling, myalgias or neck pain Neurologic Neurologic: Denies confusion, dizziness, focal weakness, headache(s), numbness, paresthesias, seizures, tingling or tremor(s) Psychiatric Psychiatric: Denies anxiety, depression, hallucinations, homicidal ideation or suicidal ideation Endocrine Endocrinology: Denies change in body appearance, cold intolerance, heat intolerance, polydipsia or polyuria Hematologic/Lymphatic Hematologic/Lymphatic: Denies easy bleeding, easy bruising or lymphadenopathy Allergic/Immunologic Allergic/Immunologic: Denies itchy eyes, rhinitis, throat swelling, tongue swelling, hives, urticaria or wheezing Vital Signs Vital Signs Vital Signs: 07/29/20 12:47 Temperature 98.0 F Temperature Source Temporal Pulse Rate 89 Respiratory Rate 15 Blood Pressure 178/105 H Blood Pressure Mean 129 Pulse Ox 97 Oxygen Delivery Method Room Air Physical Exam Const alert, oriented x3, no apparent distress and no limitations General Appearance: cooperative, comfortable and well kempt HEENT normocephalic, head/scalp atraumatic and moist oral mucous membranes Head and Scalp: normocephalic and atraumatic Eyes PERRL, EOMs intact bilaterally, conjunctivae normal and no scleral icterus General Eye: normal appearance of both eyes Periorbital: periorbital findings normal Neck no lymphadenopathy, supple, no meningeal signs, no JVD and no carotid bruits General: trachea midline Thyroid: thyroid normal Resp normal respiratory effort, normal air movement and clear to auscultation bilaterally Auscultation: Negative for crackles, rales, rhonchi or wheezes Cardio regular rate, regular rhythm, S1 normal heart sound, S2 normal heart sound, no murmurs and no JVD Peripheral Pulses: pulses 2+ throughout GI normal to inspection, nondistended, normoactive bowel sounds, soft to palpation, non-tender and non-distended; Negative for hepatosplenomegaly Auscultation: normoactive bowel sounds Extremity full ROM Extremity Narrative: Right leg: Extensive edema and erythema from just below right knee down to the right ankle, no open wounds. Trace edema on the left leg, no erythema. Peripheral Pulses: Yes pulses 2+ throughout Skin no rashes or lesions noted, no wounds and no petechiae Neuro oriented x3, CN's II-XII intact bilaterally and moves all extremities Sensorium / Orientation: alert Speech: speech normal Motor Exam: strength 5/5 throughout Psych mental status grossly normal, affect normal and denies hallucinations Lab / Micro Data Result Diagrams: 07/29/20 13:20 07/29/20 13:20 Labs: Laboratory Results - last 24 hr 07/29/20 07/29/20 07/29/20 13:20 13:20 13:20 WBC 8.8 RBC 4.75 Hgb 13.8 Hct 43.9 MCV 92.4 MCH 29.1 MCHC 31.4 L RDW Std Deviation 45.7 H RDW Coeff of Lillian 13.4 Plt Count 511 H MPV 9.7 Immature Gran % (Auto) 0.600 Neut % (Auto) 66.5 Lymph % (Auto) 23.5 [place] % (Auto) 7.8 Eos % (Auto) 1.0 Baso % (Auto) 0.6 Absolute Neuts (auto) 5.8 Absolute Lymphs (auto) 2.06 Nucleated RBC % 0 PT 11.9 INR 0.9 APTT 29.6 Sodium 136 Potassium 3.8 Chloride 103 Carbon Dioxide 30.0 Anion Gap 3 L BUN 10 Creatinine 0.92 Estim Creat Clear Calc 60.11 Est GFR (MDRD) Af Amer 80 Est GFR (MDRD) Non-Af 66 BUN/Creatinine Ratio 10.9 Glucose 94 Lactic Acid Calcium 8.7 07/29/20 13:20 WBC RBC Hgb Hct MCV MCH MCHC RDW Std Deviation RDW Coeff of Lillian Plt Count MPV Immature Gran % (Auto) Neut % (Auto) Lymph % (Auto) [place] % (Auto) Eos % (Auto) Baso % (Auto) Absolute Neuts (auto) Absolute Lymphs (auto) Nucleated RBC % PT INR APTT Sodium Potassium Chloride Carbon Dioxide Anion Gap BUN Creatinine Estim Creat Clear Calc Est GFR (MDRD) Af Amer Est GFR (MDRD) Non-Af BUN/Creatinine Ratio Glucose Lactic Acid 0.8 Calcium Assessment & Plan Assessment/Plan (1) Cellulitis of right lower extremity: (2) Failure of outpatient treatment: (3) GERD (gastroesophageal reflux disease): (4) Psoriasis: PLAN: This is a 60 years old female patient referred to the ED by her PCPs office for worsening right leg erythema, swelling and pain with failure of outpatient treatment for acute right lower extremity cellulitis. #1 acute right lower extremity cellulitis: With failure of outpatient treatment, patient has been on Keflex and doxycycline for 1 week, completed yesterday. Still having significant erythema, swelling and pain of the right leg. No evidence of sepsis or severe sepsis. Venous Doppler of the right leg showed no DVT, official report is pending. Plan: Admit to MedSurg floor, Tylenol as needed, Zofran as needed, start IV Unasyn and clindamycin, repeat CBC and BMP tomorrow morning, OxyIR as needed for pain, repeat CBC and BMP tomorrow morning, PT OT evaluation and treatment. #2 psoriasis: She has been on Humira injections, last injection was 2 weeks ago. Stable, no acute issues. #3 GERD: Stable, she is not taking medication for it. #4 history of ovarian cancer: Status post surgery, in remission stable. #5 DVT prophylaxis: Subcu Lovenox. This note was generated with [employer] dictation software. It may contain incorrect words, spelling, and punctuation that were not noted in checking the note before signing. Visit Charges Inpatient E&M: 34679 Init Hosp L2
--- NOTE | 2020-07-29 15:01 | ED.RN ---
one set of blood cultures drawn and in lab
[2020-07-29 15:22] VITALS: BMI 34.7
[2020-07-29 15:25] VITALS: BP 188/105; PULSE 83; RESP 18; TEMP 36.7; O2SAT 98
[2020-07-29 16:41] VITALS: BP 149/97; PULSE 81
[2020-07-29] MEDS: oxyCODONE 5 MG Tablet PO (19:27)
[2020-07-29 20:45] VITALS: BP 138/84; PULSE 89; RESP 18; TEMP 36.8; O2SAT 96
[2020-07-30] MEDS: oxyCODONE 5 MG Tablet PO ×4 (00:33→20:51)
[2020-07-30 02:45] VITALS: BP 151/84; PULSE 95; RESP 17; TEMP 37; O2SAT 96
[2020-07-30 05:38] LABS: Absolute Lymphocyte Count 2.25 X10^3/uL (0.83-4.51); Absolute Neutrophil Count 5.6 X10^3/uL (2.0-7.7); Basophil# 0.04 X10^3/uL; Basophil% 0.5 % (0-1); Eosinophil# 0.07 X10^3/uL; Eosinophils% 0.8 % (0-5); Hematocrit 38.1 % (37-47); Hemoglobin 11.9 g/dL (12.0-15.0); Lymphocyte # 2.25 X10^3/ul (0.83-4.51); Lymphocyte % 25.6 % (19-41); Mean Corp Hgb Conc 31.2 g/dL (32-36); Mean Corpuscular Hgb 29.3 pg (27.0-32.0); Mean Corpuscular Volume 93.8 fL (81-99); Mean Platelet Vol. 9.9 fl (6.2-12.0); Monocyte# 0.85 X10^3/uL; Monocyte% 9.7 % (0-10); NRBC Flagged by Analyzer 0 % (0-5); Neutrophil # 5.55 X10^3/uL (2.7-7.7); Neutrophil % 63.1 % (47-70); Platelet Count 422 K/mm3 (150-450); RBC Distribution Width CV 13.6 % (11.6-14.6); RBC Distribution Width SD 46.9 fl (35.1-43.9); Red Blood Count 4.06 M/mm3 (4.2-5.4); White Blood Count 8.8 K/mm3 (4.4-11.0)
[2020-07-30 05:59] LABS: Anion Gap 4 (5-15); BUN 14 mg/dL (7-18); BUN/Creat Ratio 14.6 RATIO (10-20); Calcium,Total 8.4 mg/dL (8.5-10.1); Chloride 102 mmol/L (98-107); Creatinine, Serum 0.96 mg/dL (0.55-1.02); EST Glomerular Filtration Rate 63 mL/min (>60); Est Glom Filt Rate - Afr Amer 76 mL/min (>60); Estimated Creatinine Clearance 62.08 ml/min; Glucose 99 mg/dL (74-106); Potassium 4.1 mmol/L (3.5-5.1); Sodium Level 136 mmol/L (136-145)
[2020-07-30 07:30] VITALS: O2SAT 94
[2020-07-30 08:45] VITALS: BP 134/73; PULSE 80; RESP 18; TEMP 36.7; O2SAT 95
--- NOTE | 2020-07-30 09:20 | CASEMGMT ---
LUCIO NG Assessment: Face to Face with pt for initial transition planning/care coordination assessment. RN HERNANDEZ introduced self and role at [facility], pt voices understanding and consents to assessment. Pt is A/O x4 and answers all questions appropriately at this time. Pt sitting up in bed, just finished breakfast. Care providers, pharmacy, and demographics verified/updated. Admitting Dx: acute right lower extremity cellulitis PCP: [facility] Specialists: highway engineer in [place], [facility] [place] [facility] Insurance: [facility] [id number] Prescription Benefit: yes LW/HPOA: Pt denies having a LW/DPOA LNOK: Keyshawn Peralta, Living Arrangements: Pt lives with in a modular home with 3 steps to enter with a rail. Pt states she is I in ADL's and denies concerns at home. Transportation: Pt drives self and denies concerns with transportation. DME/HHC/SNF: Pt denies having any DME, nor the need for. Pt denies previous HHC or SNF stays. Pt states no concerns with going home at time of dc. Pt states no further concerns/needs. CM to follow. Advised pt to ask CM if any further question/concerns/needs arise, voices understanding. Pt Goal: Home Plan: Home with family support.
[2020-07-30] MEDS: Enoxaparin 40 MG/0.4 ML Syringe SC (10:01)
--- NOTE | 2020-07-30 13:48 | PCM.PN.HOSP ---
Documented by User: Yakov TAVAREZ 07/30/20 15:17 Subjective Subjective Patient is a 60-year-old female comfortably resting in bed, alert and orient x3. Patient reports that her leg pain and swelling have remained the same since admission, despite antibiotic therapy. Denies chest pain, shortness of breath, palpitations, fever, chills, N/V/D. Objective Data Objective Data Vital Signs: Vital Signs Temp Pulse Resp BP Pulse Ox 98.1 F 80 18 134/73 H 95 07/30/20 08:45 07/30/20 08:45 07/30/20 08:45 07/30/20 08:45 07/30/20 08:45 Oxygen Delivery Method Room Air Weight: 228 lb 2.855 oz Body Mass Index (BMI) 34.7 Intake & Output: Intake and Output for Last 24 Hours 07/28/20 07/29/20 07/30/20 23:59 23:59 23:59 Intake Total 744 / 744 698 / 698 Balance 744 / 744 698 / 698 Lab / Micro Data Result Diagrams: 07/30/20 05:18 07/30/20 05:18 Labs: Laboratory Results - last 24 hr 07/29/20 07/30/20 07/30/20 13:20 05:18 05:18 WBC 8.8 RBC 4.06 L Hgb 11.9 L Hct 38.1 MCV 93.8 MCH 29.3 MCHC 31.2 L RDW Std Deviation 46.9 H RDW Coeff of Lillian 13.6 Plt Count 422 MPV 9.9 Immature Gran % (Auto) 0.300 Neut % (Auto) 63.1 Lymph % (Auto) 25.6 [place] % (Auto) 9.7 Eos % (Auto) 0.8 Baso % (Auto) 0.5 Absolute Neuts (auto) 5.6 Absolute Lymphs (auto) 2.25 Nucleated RBC % 0 Sodium 136 Potassium 4.1 Chloride 102 Carbon Dioxide 30.0 Anion Gap 4 L BUN 14 Creatinine 0.96 Estim Creat Clear Calc 62.08 Est GFR (MDRD) Af Amer 76 Est GFR (MDRD) Non-Af 63 BUN/Creatinine Ratio 14.6 Glucose 99 Lactic Acid 0.8 Calcium 8.4 L Radiography Diagnostic Testing: Radiology Impression Venous Doppler Study 07/29/20 13:14 Interpretation Summary There is no evidence of right lower extremity deep vein thrombosis. Right great saphenous vein appears patent and compressible segmentally. Technically difficult examination with difficult ability to visualize right calf veins secondary to edema and patient pain Ordering Physician: Hipolito Galo Referring Physician: Felicity Dexter Performed By: Rosina Dawson RVT Physical Exam Narrative See subjective. Const alert, oriented x3 and no apparent distress HEENT head/scalp atraumatic and moist oral mucous membranes Head and Scalp: normocephalic Eyes PERRL and EOMs intact bilaterally Neck no lymphadenopathy, supple and no JVD Resp normal respiratory effort, no retractions, no use of accessory muscles and clear to auscultation bilaterally Cardio regular rate, regular rhythm, no murmurs and no JVD GI normal to inspection, nondistended, normoactive bowel sounds, soft to palpation, non-tender and non-distended Extremity Right Lower Extremity: lower leg inspection (Erythema and edema) and palpation (Pain to palpation) Skin Skin Narrative: See above for right lower extremity Neuro CN's II-XII intact bilaterally Psych affect normal Assessment & Plan Assessment/Plan (1) Cellulitis of right lower extremity: (2) Failure of outpatient treatment: (3) Psoriasis: (4) GERD (gastroesophageal reflux disease): PLAN: Patient is a 60-year-old male who was admitted to [facility] on 07/29/2020 for right lower extremity cellulitis. Patient currently only on clindamycin. Patient reports no improvement in RLE pain, swelling or redness on current antibiotic regimen. 1) acute cellulitis of the RLE Venous Doppler demonstrates no evidence of DVT in RLE. Right great saphenous vein appears patent and compressible submentally. X-ray of the RLE unremarkable and only demonstrate soft tissue swelling. Plan: Initiate vancomycin, stop Unasyn and Clindamycin. Tylenol as needed, Zofran as needed, repeat CBC and BMP tomorrow morning, OxyIR as needed for pain, repeat CBC and BMP tomorrow morning, PT/OT evaluation and treatment. 2) Psoriasis Stable, last Humira injection 2 weeks ago. 3) GERD Stable, no home PPI regimen. 4) Hx of Ovarian cancer Status post surgery, in remission. DVT Prophylaxis -Lovenox SC Patient seen by Yakov Lay PA-C, under the supervision of Dr. Chen. Documented by User: Dr. Afshin Chen DO 07/30/20 16:27 Objective Data Lab / Micro Data Result Diagrams: 07/30/20 05:18 07/30/20 05:18 Physical Exam Const alert Exam Limitations: no limitations Eyes PERRL Resp normal respiratory effort and clear to auscultation bilaterally Cardio regular rate, regular rhythm, S1 normal heart sound and S2 normal heart sound GI normal to inspection, nondistended, normoactive bowel sounds, non-tender and non-distended Skin Skin Narrative: Murmur and erythema of her distal right lower extremity. Does have a patch on anterior olvera consistent with her psoriasis Neuro Sensorium / Orientation: awake and alert Assessment & Plan Assessment/Plan (1) Cellulitis of right lower extremity: PLAN: Patient seen and examined independently. Data reviewed. I agree with the above note by the physician corporate administrative assistant. Right lower extremity cellulitis: Patient had on 7 days of cephalexin and doxycycline but no improvement. Concern for MRSA so we will discontinue the ampicillin/sulbactam and clindamycin and start the patient on vancomycin. Observe. Consider imaging if her leg gets worse. No woody appearance to suggest necrotizing fasciitis at this point time. Patient clinically otherwise stable. Visit Charges Inpatient E&M: 93846 Subs Hosp L2
[2020-07-30 14:45] VITALS: BP 147/76; PULSE 75; RESP 18; TEMP 36.6; O2SAT 94
--- NOTE | 2020-07-30 15:44 | PCM.RX.CS ---
Consult Pharmacy has been consulted to manage selected antiobiotic: Vancomycin Type of Consult: New start Suspected Infection: Skin/Soft tissue Labs: Sodium 136 mmol/L (136-145) 07/30/20 05:18 Potassium 4.1 mmol/L (3.5-5.1) 07/30/20 05:18 Chloride 102 mmol/L (98-107) 07/30/20 05:18 Carbon Dioxide 30.0 mmol/L (21.0-32.0) 07/30/20 05:18 Anion Gap 4 (5-15) L 07/30/20 05:18 BUN 14 mg/dL (7-18) 07/30/20 05:18 Creatinine 0.96 mg/dL (0.55-1.02) 07/30/20 05:18 Est GFR (MDRD) Af Amer 76 mL/min (>60) 07/30/20 05:18 Est GFR (MDRD) Non-Af 63 mL/min (>60) 07/30/20 05:18 BUN/Creatinine Ratio 14.6 RATIO (10-20) 07/30/20 05:18 Glucose 99 mg/dL (74-106) 07/30/20 05:18 Weight used for dosin kg Goal Trough: 15-20 mcg/mL Pharmacy Plan for Drug Dosing: NEW START IV VANCOMYCIN Consulting Physician: Alireza Indication: Cellulitis of RLE Goal Trough: 15-20 SrCr: 0.96 CrCl: 62 Comments: pt has failed Doxycycline/Keflex as outpatient therapy, and Unasyn/Clindamycin as inpatient therapy Vancomcyin Dose: 2000mg IV x1 loading dose, then 1250mg IV q12h starting 07/31/20 at 0400 Pending Level: 08/01/20 at 0330 Pharmacy Service will continue to monitor and adjust dosing as required. Follow-Up Labs: Trough Vancomycin - 08/01/20 at 0330
[2020-07-30 20:16] VITALS: BP 145/75; PULSE 85; RESP 17; TEMP 36.7; O2SAT 96
[2020-07-31 02:24] VITALS: BP 126/88; PULSE 89; RESP 18; TEMP 36.8; O2SAT 96
[2020-07-31 05:48] LABS: Basophil# 0.06 X10^3/uL; Basophil% 0.9 % (0-1); Eosinophil# 0.06 X10^3/uL; Eosinophils% 0.9 % (0-5); Hematocrit 36.9 % (37-47); Hemoglobin 11.6 g/dL (12.0-15.0); Lymphocyte % 29.5 % (19-41); Mean Corp Hgb Conc 31.4 g/dL (32-36); Mean Corpuscular Hgb 29.2 pg (27.0-32.0); Mean Corpuscular Volume 92.9 fL (81-99); Mean Platelet Vol. 10.2 fl (6.2-12.0); Monocyte# 0.69 X10^3/uL; Monocyte% 10.2 % (0-10); NRBC Flagged by Analyzer 0 % (0-5); Neutrophil # 3.96 X10^3/uL (2.7-7.7); Neutrophil % 58.2 % (47-70); Platelet Count 376 K/mm3 (150-450); RBC Distribution Width CV 13.5 % (11.6-14.6); RBC Distribution Width SD 46.1 fl (35.1-43.9); Red Blood Count 3.97 M/mm3 (4.2-5.4); White Blood Count 6.8 K/mm3 (4.4-11.0)
[2020-07-31 06:08] LABS: Anion Gap 6 (5-15); BUN 10 mg/dL (7-18); BUN/Creat Ratio 13.1 RATIO (10-20); Calcium,Total 8.5 mg/dL (8.5-10.1); Chloride 103 mmol/L (98-107); Creatinine, Serum 0.76 mg/dL (0.55-1.02); EST Glomerular Filtration Rate 82 mL/min (>60); Est Glom Filt Rate - Afr Amer 99 mL/min (>60); Estimated Creatinine Clearance 78.42 ml/min; Glucose 101 mg/dL (74-106); Potassium 3.9 mmol/L (3.5-5.1); Sodium Level 138 mmol/L (136-145)
[2020-07-31 07:45] VITALS: O2SAT 93
[2020-07-31 08:24] VITALS: BP 157/91; PULSE 72; RESP 16; TEMP 36; O2SAT 94
[2020-07-31] MEDS: oxyCODONE 5 MG Tablet PO ×2 (08:34→17:03)
[2020-07-31] MEDS: Enoxaparin 40 MG/0.4 ML Syringe SC (08:35)
--- NOTE | 2020-07-31 13:03 | PN.HOSP_ITS ---
Documented by User: Yakov TAVAREZ 07/31/20 13:11 Subjective Subjective Patient is a 60-year-old female who is resting comfortably in a chair, alert and oriented x3. Patient reports that her right lower extremity pain and swelling is much improved from yesterday and believes that the change in antibiotic is helping her. Denies chest pain, shortness of breath, palpitations, fever, chills, N/V/D. Objective Data Objective Data Vital Signs: Vital Signs Temp Pulse Resp BP Pulse Ox 96.8 F L 72 16 157/91 H 94 07/31/20 08:24 07/31/20 08:24 07/31/20 08:24 07/31/20 08:24 07/31/20 08:24 Oxygen Delivery Method Room Air Weight: 228 lb 2.855 oz Body Mass Index (BMI) 34.7 Intake & Output: Intake and Output for Last 24 Hours 07/29/20 07/30/20 07/31/20 23:59 23:59 23:59 Intake Total 744 / 744 2136 / 2136 1355 / 1355 Balance 744 / 744 2136 / 2136 1355 / 1355 Lab / Micro Data Result Diagrams: 07/31/20 04:55 07/31/20 04:55 Labs: Laboratory Results - last 24 hr 07/31/20 07/31/20 04:55 04:55 WBC 6.8 RBC 3.97 L Hgb 11.6 L Hct 36.9 L MCV 92.9 MCH 29.2 MCHC 31.4 L RDW Std Deviation 46.1 H RDW Coeff of Lillian 13.5 Plt Count 376 MPV 10.2 Immature Gran % (Auto) 0.300 Neut % (Auto) 58.2 Lymph % (Auto) 29.5 [place] % (Auto) 10.2 H Eos % (Auto) 0.9 Baso % (Auto) 0.9 Absolute Neuts (auto) 4.0 Absolute Lymphs (auto) 2.00 Nucleated RBC % 0 Sodium 138 Potassium 3.9 Chloride 103 Carbon Dioxide 29.0 Anion Gap 6 BUN 10 Creatinine 0.76 Estim Creat Clear Calc 78.42 Est GFR (MDRD) Af Amer 99 Est GFR (MDRD) Non-Af 82 BUN/Creatinine Ratio 13.1 Glucose 101 Calcium 8.5 Radiography Diagnostic Testing: Radiology Impression Tibia/Fibula X-Ray 07/29/20 13:35 IMPRESSION: Diffuse soft tissue edema. Electronically Signed: Zechariah Gilmore MD at 13:46 EDT , Service support , Physical Exam Narrative See subjective. Const alert, oriented x3 and no apparent distress HEENT head/scalp atraumatic and moist oral mucous membranes Head and Scalp: normocephalic Eyes PERRL, EOMs intact bilaterally and conjunctivae normal Neck no lymphadenopathy, supple and no JVD Resp normal respiratory effort, no use of accessory muscles and clear to auscultation bilaterally Cardio regular rate, regular rhythm, no murmurs and no JVD GI normal to inspection, nondistended, normoactive bowel sounds, soft to palpation, non-tender and non-distended Extremity Extremity Narrative: Right lower extremity is erythematous, edematous and swollen. RLE appears much improved from yesterday, although still appears acutely inflamed. Skin no rashes or lesions noted, no wounds, skin turgor normal, no jaundice and no petechiae Neuro CN's II-XII intact bilaterally Psych affect normal Assessment & Plan Assessment/Plan (1) Cellulitis of right lower extremity: (2) Failure of outpatient treatment: (3) Psoriasis: (4) GERD (gastroesophageal reflux disease): PLAN: See subjective for patient presentation. On my exam RLE appears improved from yesterday in regards to erythema, tenderness and edema. Given the prolonged nature of patient's cellulitis and failing outpatient antibiotics previously, believe it would be prudent for patient to remain admitted ov [facility]. Anticipate discharge tomorrow. 1) acute cellulitis of the RLE CBC and BMP unremarkable, white count not elevated. Venous Doppler demonstrates no evidence of DVT in RLE. Right great saphenous vein appears patent and compressible submentally. X-ray of the RLE unremarkable and only demonstrate soft tissue swelling. Plan: Continue vancomycin, Tylenol as needed, Zofran as needed, repeat CBC and BMP tomorrow morning, OxyIR as needed for pain, repeat CBC and BMP tomorrow morning, PT/OT evaluation and treatment. 2) Psoriasis Stable, last Humira injection 2 weeks ago. 3) GERD Stable, no home PPI regimen. 4) Hx of Ovarian cancer Status post surgery, in remission. DVT Prophylaxis -Lovenox SC Patient seen by Yakov Lay PA-C, under the supervision of Dr. Chen. Documented by User: Dr. Afshin Chen, 07/31/20 14:40 Objective Data Lab / Micro Data Result Diagrams: 07/31/20 04:55 07/31/20 04:55 Physical Exam Narrative Decreased erythema of the right lower extremity still edematous. Assessment & Plan Assessment/Plan (1) Cellulitis of right lower extremity: PLAN: PLAN: Patient seen and examined independently. Data reviewed. I agree with the above note by the physician assistant men's lacrosse coach. Right lower extremity cellulitis: Improving. Patient had on 7 days of cephalexin and doxycycline but no improvement. Concern for MRSA so we will discontinue the ampicillin/sulbactam and clindamycin and start the patient on vancomycin. Observe. Consider imaging if her leg gets worse. No woody appearance to suggest necrotizing fasciitis at this point time. Patient clinically otherwise stable. Plan is to continue with another day of vancomycin. Consider trimethoprim/sulfamethoxazole versus linezolid upon discharge. Visit Charges Inpatient E&M: 95490 [facility] Hosp L2
[2020-07-31 14:20] VITALS: BP 152/80; PULSE 85; RESP 16; TEMP 36.3; O2SAT 95
[2020-07-31 21:36] VITALS: BP 154/89; PULSE 76; RESP 18; TEMP 36.7; O2SAT 95
[2020-07-31] MEDS: Acetaminophen 325 MG Tablet 650 MG PO (21:44)
[2020-07-31] MEDS: Zolpidem Tartrate 5 MG Tablet PO (23:06)
[2020-08-01 04:02] VITALS: BP 149/96; PULSE 74; RESP 18; TEMP 36.9; O2SAT 92
[2020-08-01] MEDS: Acetaminophen 325 MG Tablet 650 MG PO (04:16)
[2020-08-01] MEDS: 0.9% Saline Lock 10 ML Syringe IV (04:16)
[2020-08-01 04:24] LABS: Vancomycin, Trough Level 18.2 ug/mL (5.0-15.0)
[2020-08-01 05:52] LABS: Absolute Lymphocyte Count 1.85 X10^3/uL (0.83-4.51); Absolute Neutrophil Count 3.8 X10^3/uL (2.0-7.7); Basophil# 0.05 X10^3/uL; Basophil% 0.8 % (0-1); Eosinophil# 0.12 X10^3/uL; Eosinophils% 1.9 % (0-5); Hematocrit 38.7 % (37-47); Hemoglobin 12.1 g/dL (12.0-15.0); Lymphocyte # 1.85 X10^3/ul (0.83-4.51); Lymphocyte % 28.9 % (19-41); Mean Corp Hgb Conc 31.3 g/dL (32-36); Mean Corpuscular Hgb 29.6 pg (27.0-32.0); Mean Corpuscular Volume 94.6 fL (81-99); Monocyte# 0.55 X10^3/uL; Monocyte% 8.6 % (0-10); NRBC Flagged by Analyzer 0 % (0-5); Neutrophil # 3.81 X10^3/uL (2.7-7.7); Neutrophil % 59.5 % (47-70); Platelet Count 369 K/mm3 (150-450); RBC Distribution Width CV 13.2 % (11.6-14.6); RBC Distribution Width SD 45.9 fl (35.1-43.9); Red Blood Count 4.09 M/mm3 (4.2-5.4); White Blood Count 6.4 K/mm3 (4.4-11.0)
[2020-08-01 06:34] LABS: Anion Gap 5 (5-15); BUN 13 mg/dL (7-18); BUN/Creat Ratio 18.1 RATIO (10-20); Calcium,Total 8.6 mg/dL (8.5-10.1); Chloride 105 mmol/L (98-107); Creatinine, Serum 0.72 mg/dL (0.55-1.02); EST Glomerular Filtration Rate 88 mL/min (>60); Est Glom Filt Rate - Afr Amer 106 mL/min (>60); Estimated Creatinine Clearance 82.77 ml/min; Glucose 106 mg/dL (74-106); Potassium 3.9 mmol/L (3.5-5.1); Sodium Level 137 mmol/L (136-145)
[2020-08-01 07:32] VITALS: O2SAT 94
[2020-08-01] MEDS: Enoxaparin 40 MG/0.4 ML Syringe SC (09:48)
[2020-08-01 10:00] VITALS: BP 138/91; PULSE 73; RESP 16; TEMP 36.7; O2SAT 96
--- NOTE | 2020-08-01 10:07 | CT_ITS ---
CT of the right ankle with contrast INDICATION: Cellulitis, pain, swelling. TECHNIQUE: Multiple thin section axial CT images the right ankle were obtained after the administration of 100 mL Isovue-370 intravenously and filmed in soft tissue and bone windows. Furthermore, multiple sagittal and coronal reconstructions were performed. Dose limiting techniques were utilized. FINDINGS: There is diffuse skin thickening with edema in the subcutaneous fat and fluid surrounding the musculature of the leg and ankle consistent with a cellulitis or passive congestion. More severe swelling is seen in the dorsum of the foot. No loculated fluid collection to suggest abscess. Normal appearance to the musculature of the distal calf. No acute fracture or dislocation. No lytic or blastic lesions. No bony destruction to suggest osteomyelitis. Normal tibiotalar joint without arthrosis. IMPRESSION: Cellulitis or passive congestion but no abscess or osteomyelitis. Electronically Signed: Bala Reeves MD at 12:35 EDT Tel , Service support , CT/Extremity Lower WITH Contrast
[2020-08-01] MEDS: oxyCODONE 5 MG Tablet PO (10:31)
--- NOTE | 2020-08-01 13:20 | PCM.DC ---
Discharge Instructions Diet Discharge Diet: No restrictions Activity Discharge Activity: Return to Normal Activity Follow Up Care Please Follow Up With: Primary care provider When: Within the next 2 weeks Test Results: Test results from this visit will be discussed in further detail at your follow-up appointment, if applicable. Discharge Plan Admission Admit Date/Time: 07/29/20 14:45 Primary Reason for Your Visit: Cellulitis of the Right Lower Extremity Attending Provider: Afshin Chen Primary Care Provider: Felicity Dexter Discharge Orders/Prescriptions Prescriptions: New sulfamethoxazole-trimethoprim [Bactrim DS] 800-160 mg tablet 1 tab PO BID Qty: 10 RF: 0 oxycodone 5 mg capsule 5 mg PO Q8H PRN (Reason: pain) 5 Days Qty: 15 RF: 0 Continued Humira(CF) Pen 40 mg/0.4 mL pen injector kit 40 mg subcut .2QWEEKS RF: 0 multivitamin [Daily Multi-Vitamin] Tablet 1 tab PO DAILY RF: 0 tramadol 50 mg tablet 50 mg PO Q8H PRN (Reason: pain) Qty: 20 RF: 0 calcium carbonate 600 mg calcium (1,500 mg) Tablet 600 mg PO DAILY RF: 0 ibuprofen 200 mg Tablet 600 mg PO Q4H PRN (Reason: Pain) RF: 0 Referrals / Follow Up: Felicity Dexter MD [Primary Care Provider] - Disposition Disposition (needs filled in before D/C Order can be placed): Home, self care
--- NOTE | 2020-08-01 13:29 | DS.PCM_ITS ---
Providers Date of Admission: 07/29/20 Primary Care Physician: Dr. Felicity Dexter MD Reason For Visit: ACUTE RIGHT LOWER EXTREMITY CELLULITIS Diagnosis Discharge Diagnosis (1) Cellulitis of right lower extremity: Status: Acute Code(s): L03.115 - Cellulitis of right lower limb Medications at Discharge Home Medications adalimumab 40 mg/0.4 mL subcutaneous pen kit 40 mg SUBCUT .2QWEEKS 07/21/20 multivitamin 1 tab PO DAILY 07/21/20 tramadol 50 mg tablet 50 mg PO Q8H PRN #20 tab 07/21/20 calcium carbonate 600 mg PO DAILY 07/29/20 ibuprofen 600 mg PO Q4H PRN 07/29/20 oxycodone 5 mg PO Q8H PRN 5 Days #15 cap 08/01/20 sulfamethoxazole-trimethoprim [Bactrim DS] 1 tab PO BID #10 tab 08/01/20 Hospital Course Summary of Care Provided Minutes Spent on Discharge: 35 Hospital Course: Patient is a 60-year-old female who was admitted to [facility] on 07/29/2020 due to cellulitis of the RLE and failure of outpatient management. On my exam RLE appears improved from yesterday in regards to erythema, tenderness and edema. CT of the right lower extremity was obtained to ensure there was no subcutaneous abscess or osteomyelitis. CT only demonstrated cellulitis and showed no evidence of abscess or osteomyelitis. Patient reports feeling well enough to return home to continue antibiotic therapy. Patient did report development of a possible yeast infection, as she reports cottage cheese in her vaginal area. Denies dysuria, frequency or urgency. Patient given 1 dose of fluconazole before discharge. Recommend to follow-up with primary care provider within the next week in regards to cellulitis and possible yeast infection. 1) acute cellulitis of the RLE CT of the RLE as above. CBC and BMP unremarkable, white count not elevated. Venous Doppler demonstrates no evidence of DVT in RLE, right great saphenous vein appears patent and compressible submentally. X-ray of the RLE unremarkable and only demonstrate soft tissue swelling. Plan: Bactrim x5 days initiated on discharge, OxyIR 5 mg p.o. every 8 as needed x5 days initiated on discharge. Follow-up with primary care provider within the next 1 to 2 weeks. 2) Psoriasis Stable, last Humira injection 2 weeks ago. 3) GERD Stable, no home PPI regimen. 4) Hx of Ovarian cancer Status post surgery, in remission. 5) Yeast infection Patient presentation as above. Plan; fluconazole 150 mg p.o. x1 given prior to discharge. Follow-up with primary care provider within the next 1 to 2 weeks. Patient seen by Yakov Lay PA-C, under the supervision of Dr. Chen. Physical Exam Narrative Patient is a 60-year-old female comfortably resting in chair, alert and oriented x3. Patient reports no progression of symptoms from yesterday, reports feeling well enough to go home. Patient feels that her leg has continued to improve from yesterday in regards to redness, swelling and pain. Denies chest pain, shortness of breath, palpitations, fever, chills, N/V/D. Const alert, oriented x3 and no apparent distress HEENT normocephalic, head/scalp atraumatic and hearing grossly normal bilaterally Eyes PERRL, EOMs intact bilaterally and conjunctivae normal Neck no lymphadenopathy, supple and no JVD Resp normal respiratory effort, no retractions, no use of accessory muscles and clear to auscultation bilaterally Cardio regular rate, regular rhythm, no murmurs and no rub GI normal to inspection, nondistended, normoactive bowel sounds, soft to palpation, non-tender and non-distended Extremity normal to inspection and full ROM Extremity Narrative: Mild redness, tenderness to palpation and edema of the RLE, however does appear to be continually improved from yesterday. General Extremity: edema Skin Skin Narrative: See extremity. Neuro CN's II-XII intact bilaterally Psych affect normal ABG / Lab / Microbiology Data Result Diagrams: 08/01/20 05:36 08/01/20 05:36 Laboratory: Laboratory Results - last 24 hr 08/01/20 08/01/20 08/01/20 03:55 05:36 05:36 WBC 6.4 RBC 4.09 L Hgb 12.1 Hct 38.7 MCV 94.6 MCH 29.6 MCHC 31.3 L RDW Std Deviation 45.9 H RDW Coeff of Lillian 13.2 Plt Count 369 MPV 10.0 Immature Gran % (Auto) 0.300 Neut % (Auto) 59.5 Lymph % (Auto) 28.9 [place] % (Auto) 8.6 Eos % (Auto) 1.9 Baso % (Auto) 0.8 Absolute Neuts (auto) 3.8 Absolute Lymphs (auto) 1.85 Nucleated RBC % 0 Sodium 137 Potassium 3.9 Chloride 105 Carbon Dioxide 27.0 Anion Gap 5 BUN 13 Creatinine 0.72 Estim Creat Clear Calc 82.77 Est GFR (MDRD) Af Amer 106 Est GFR (MDRD) Non-Af 88 BUN/Creatinine Ratio 18.1 Glucose 106 Calcium 8.6 Vancomycin Trough 18.2 H Radiography Diagnostic Testing: Radiology Impression Lower Extremity CT 08/01/20 10:07 D/C Instructions Discharge Diet: No restrictions Discharge Activity: Return to Normal Activity Please Follow Up With: Primary care provider When: Within the next 2 weeks Meaningful Use Info Meaningful Use Diagnoses (Choose all that apply): None applicable Discharge Plan Admission Admit Date/Time: 07/29/20 14:45 Primary Reason for Your Visit: Cellulitis of the Right Lower Extremity Attending Provider: Afshin Chen Primary Care Provider: Felicity Dexter Discharge Orders/Prescriptions Prescriptions: New sulfamethoxazole-trimethoprim [Bactrim DS] 800-160 mg tablet 1 tab PO BID Qty: 10 RF: 0 oxycodone 5 mg capsule 5 mg PO Q8H PRN (Reason: pain) 5 Days Qty: 15 RF: 0 Continued Humira(CF) Pen 40 mg/0.4 mL pen injector kit 40 mg subcut .2QWEEKS RF: 0 multivitamin [Daily Multi-Vitamin] Tablet 1 tab PO DAILY RF: 0 tramadol 50 mg tablet 50 mg PO Q8H PRN (Reason: pain) Qty: 20 RF: 0 calcium carbonate 600 mg calcium (1,500 mg) Tablet 600 mg PO DAILY RF: 0 ibuprofen 200 mg Tablet 600 mg PO Q4H PRN (Reason: Pain) RF: 0 Referrals / Follow Up: Felicity Dexter MD [Primary Care Provider] - Disposition Disposition (needs filled in before D/C Order can be placed): Home, self care
[2020-08-01] MEDS: FLUCONAZOLE 150 MG TABLET PO (14:36)
--- NOTE | 2020-08-03 15:53 | CASEMGMT ---
LUCIO NG Discharge Follow-Up Phone Call. Lace: 11 Strata: 3 Discharge Date: 08/01/20 Adm Dx: Acute RLE cellulitis. Attempted discharge f/u phone call. No answer. Non-identifying VM received. Non-descript VM left requesting return call if there are any questions or concerns. Phone number provided. Arben BRITT RN CM
== END 2020-08-01 14:45 | disposition home or self-care (01) | DRG 603 ==
LOC: ED 14:43 → PCU 15:05
PROVIDERS: Physician Assistant; Admitting Provider Hospitalist; Emergency Provider Emergency Medicine; PCP Internal Medicine
DX: L03.115 Cellulitis of right lower limb (principal); L40.9 Psoriasis, unspecified; K21.9 Gastro-esophageal reflux disease without esophagitis; B37.3 Candidiasis of vulva and vagina; F41.9 Anxiety disorder, unspecified; G62.9 Polyneuropathy, unspecified; F17.200 Nicotine dependence, unspecified, uncomplicated; Z85.43 Personal history of malignant neoplasm of ovary; Z79.899 Other long term (current) drug therapy
CPT/HCPCS: 36415; 73590; 73701; 80048; 80202; 83605; 85025; 85610; 85730; 93971; 99251; 99283; J7030; J7040; J7050; Q9967; A4216; G0463; J0295

== ENCOUNTER → 2020-11-03 09:10 | Outpatient (CLI) | payer OTHER, SELFPAY ==
[2020-11-03 08:49] VITALS: BMI 34.7
[2020-11-03 12:23] LABS: AST(SGOT) 12 U/L (15-37); Alanine Aminotransfer ALT/SGPT 26 U/L (13-56); Albumin, Serum 3.7 g/dL (3.2-5.0); Alkaline Phosphatase 82 U/L (45-117); Anion Gap 3 (5-15); BUN 17 mg/dL (7-18); BUN/Creat Ratio 18.3 RATIO (10-20); Calcium,Total 9.1 mg/dL (8.5-10.1); Chloride 106 mmol/L (98-107); Cholesterol 257 mg/dL (200); Creatinine, Serum 0.93 mg/dL (0.55-1.02); EST Glomerular Filtration Rate 65 mL/min (>60); Est Glom Filt Rate - Afr Amer 79 mL/min (>60); Globulin 3.7 g/dL (2.2-4.2); Glucose 89 mg/dL (74-106); High Density Lipoprotein 65 mg/dL; Potassium 4.7 mmol/L (3.5-5.1); Protein, Total 7.4 g/dL (6.4-8.2); Sodium Level 140 mmol/L (136-145); Triglycerides 146 mg/dL; Very Low Density Lipoprotein 29 mg/dL (5-40)
== END ==
PROVIDERS: PCP Internal Medicine; Referring Provider Internal Medicine; Visit Provider Internal Medicine
DX: I10 Essential (primary) hypertension (principal)
CPT/HCPCS: 36415; 80053; 80061

== ENCOUNTER → 2020-12-01 11:47 | Outpatient (CLI) | payer OTHER, SELFPAY ==
[2020-12-01 15:28] LABS: Anion Gap 8 (5-15); BUN 19 mg/dL (7-18); BUN/Creat Ratio 17.8 RATIO (10-20); Calcium,Total 9.5 mg/dL (8.5-10.1); Chloride 103 mmol/L (98-107); Creatinine, Serum 1.07 mg/dL (0.55-1.02); EST Glomerular Filtration Rate 55 mL/min (>60); Est Glom Filt Rate - Afr Amer 67 mL/min (>60); Glucose 96 mg/dL (74-106); Potassium 4.5 mmol/L (3.5-5.1); Sodium Level 139 mmol/L (136-145)
== END ==
PROVIDERS: PCP Internal Medicine; Referring Provider Internal Medicine; Visit Provider Internal Medicine
DX: I10 Essential (primary) hypertension (principal)
CPT/HCPCS: 36415; 80048

== ENCOUNTER 2021-04-27 10:39 | Outpatient (CLI) | payer OTHER, SELFPAY ==
[2021-04-27 13:31] LABS: Anion Gap 9 (5-15); BUN 22 mg/dL (7-18); BUN/Creat Ratio 20.2 RATIO (10-20); Calcium,Total 9.2 mg/dL (8.5-10.1); Chloride 101 mmol/L (98-107); Cholesterol 222 mg/dL (200); Creatinine, Serum 1.09 mg/dL (0.55-1.02); EST Glomerular Filtration Rate 54 mL/min (>60); Est Glom Filt Rate - Afr Amer 65 mL/min (>60); Glucose 96 mg/dL (74-106); High Density Lipoprotein 61 mg/dL; Potassium 4.3 mmol/L (3.5-5.1); Sodium Level 138 mmol/L (136-145); Triglycerides 122 mg/dL; Very Low Density Lipoprotein 24 mg/dL (5-40)
== END 2021-04-27 23:59 | disposition home or self-care (01) ==
LOC: BIMLAB 10:40
PROVIDERS: PCP Internal Medicine; Referring Provider Internal Medicine; Visit Provider Internal Medicine
DX: I10 Essential (primary) hypertension (principal); E78.5 Hyperlipidemia, unspecified
CPT/HCPCS: 36415; 80048; 80061

== ENCOUNTER 2021-06-01 13:35 | Outpatient (CLI) | payer OTHER, SELFPAY ==
--- NOTE | 2021-06-01 13:37 | BI_ITS ---
MAMMOGRAPHY - BILATERAL SCREENING 3-D TOMOSYNTHESIS REASON FOR EXAM: Female, 60 years old. Breast Cancer Screening PERTINENT HISTORY: No significant family history. TECHNIQUE: 2-D mammograms and 3-D Tomosynthesis of the breast (s) were performed. CAD was performed. COMPARISON: 05/14/2019 FINDINGS: The breast composition is heterogeneously dense that can obscure small breast masses. Scattered benign calcifications are seen. No dense spiculated masses or suspicious microcalcifications are identified. No architectural distortion is identified. There is no skin thickening or retraction. There has been no significant change since the prior study. BI/SCRN MAMM (CAD)W/CHANTALE BILAT IMPRESSION: No mammographic signs of malignancy. Routine yearly mammograms recommended. ASSESSMENT CATEGORY: BIRADS Category 1: Negative. A letter regarding these results will be sent to the patient by the facility within 30 days. FOLLOW UP RECOMMENDATION: Yearly follow up mammogram recommended. (A) Approximately 10% of breast cancers are not detected by mammography. A normal mammogram should not delay biopsy of a clinically suspicious abnormality. Electronically Signed: Bala Reeves MD at 17:49 EDT ,
== END 2021-06-01 23:59 | disposition home or self-care (01) ==
LOC: OPBI 13:35
PROVIDERS: PCP Family Medicine; Referring Provider Internal Medicine; Visit Provider Internal Medicine
DX: Z12.31 Encounter for screening mammogram for malignant neoplasm of breast (principal)
CPT/HCPCS: 77063; 77067

== ENCOUNTER 2021-09-15 08:20 | Emergency (ER) | payer OTHER, SELFPAY ==
[2021-09-15 08:22] VITALS: BP 159/111; PULSE 65; RESP 16; TEMP 36.5; O2SAT 96; BMI 33.8
[2021-09-15 08:25] VITALS: O2SAT 96
[2021-09-15 08:31] VITALS: BP 158/104
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
[2021-09-15] MEDS: 0.9% Normal Saline 1,000 ML 150 ML IV (09:15)
[2021-09-15] MEDS: Ondansetron 4 MG/2 ML Vial IV (09:16)
[2021-09-15] MEDS: Morphine 4 MG/ML Syringe IV (09:16)
[2021-09-15 09:25] LABS: Absolute Lymphocyte Count 1.93 X10^3/uL (0.83-4.51); Absolute Neutrophil Count 5.8 X10^3/uL (2.0-7.7); Basophil# 0.05 X10^3/uL; Basophil% 0.6 % (0-1); Eosinophil# 0.16 X10^3/uL; Eosinophils% 1.9 % (0-5); Hematocrit 47.1 % (37-47); Hemoglobin 15.5 g/dL (12.0-15.0); Lymphocyte # 1.93 X10^3/ul (0.83-4.51); Lymphocyte % 22.6 % (19-41); Mean Corp Hgb Conc 32.9 g/dL (32-36); Mean Corpuscular Hgb 29.9 pg (27.0-32.0); Mean Corpuscular Volume 90.9 fL (81-99); Mean Platelet Vol. 10.6 fl (6.2-12.0); Monocyte# 0.57 X10^3/uL; Monocyte% 6.7 % (0-10); NRBC Flagged by Analyzer 0 % (0-5); Neutrophil # 5.79 X10^3/uL (2.7-7.7); Neutrophil % 67.7 % (47-70); Platelet Count 295 K/mm3 (150-450); RBC Distribution Width CV 13.2 % (11.6-14.6); RBC Distribution Width SD 44.1 fl (35.1-43.9); Red Blood Count 5.18 M/mm3 (4.2-5.4); White Blood Count 8.5 K/mm3 (4.4-11.0)
[2021-09-15 09:33] LABS: AST(SGOT) 27 U/L (15-37); Alanine Aminotransfer ALT/SGPT 24 U/L (13-56); Albumin, Serum 3.4 g/dL (3.2-5.0); Alkaline Phosphatase 73 U/L (45-117); Anion Gap 7 (5-15); BUN 22 mg/dL (7-18); BUN/Creat Ratio 17.5 RATIO (10-20); Bilirubin, Direct 0.15 mg/dL (0.00-0.30); Calcium,Total 8.9 mg/dL (8.5-10.1); Chloride 101 mmol/L (98-107); Creatinine, Serum 1.26 mg/dL (0.55-1.02); EST Glomerular Filtration Rate 46 mL/min (>60); Est Glom Filt Rate - Afr Amer 55 mL/min (>60); Globulin 3.7 g/dL (2.2-4.2); Glucose 104 mg/dL (74-106); Potassium 4.1 mmol/L (3.5-5.1); Protein, Total 7.1 g/dL (6.4-8.2); Sodium Level 138 mmol/L (136-145)
[2021-09-15 09:39] LABS: Prothrombin Time (Protime)PT. 12.4 SECONDS (11.7-14.9)
[2021-09-15 09:40] LABS: Partial Thromboplast Time 29.5 Seconds (24.1-36.2)
== END 2021-09-15 11:03 | disposition home or self-care (01) ==
PROVIDERS: Emergency Provider Emergency Medicine; PCP Internal Medicine; Visit Provider Emergency Medicine
DX: S20.20XA Contusion of thorax, unspecified, initial encounter (principal); S30.1XXA Contusion of abdominal wall, initial encounter; S39.012A Strain of muscle, fascia and tendon of lower back, initial encounter; S80.811A Abrasion, right lower leg, initial encounter; F17.210 Nicotine dependence, cigarettes, uncomplicated; V43.52XA Car driver injured in collision with other type car in traffic accident, initial encounter
CPT/HCPCS: 70450; 71260; 72125; 74177; 80048; 80076; 85025; 85610; 85730; 93005; 96374; 96375; 99285; J7030; Q9967; A4216; J2405

== ENCOUNTER → 2021-10-21 | Outpatient (CLI) | payer OTHER, SELFPAY ==
[2021-10-21 16:15] LABS: Absolute Lymphocyte Count 2.31 X10^3/uL (0.83-4.51); Absolute Neutrophil Count 5.7 X10^3/uL (2.0-7.7); Basophil# 0.06 X10^3/uL; Basophil% 0.7 % (0-1); Eosinophils% 2.2 % (0-5); Hematocrit 49.3 % (37-47); Hemoglobin 16.4 g/dL (12.0-15.0); Lymphocyte # 2.31 X10^3/ul (0.83-4.51); Lymphocyte % 25.9 % (19-41); Mean Corp Hgb Conc 33.3 g/dL (32-36); Mean Corpuscular Hgb 29.7 pg (27.0-32.0); Mean Corpuscular Volume 89.3 fL (81-99); Mean Platelet Vol. 11.3 fl (6.2-12.0); Monocyte% 6.7 % (0-10); NRBC Flagged by Analyzer 0 % (0-5); Neutrophil # 5.72 X10^3/uL (2.7-7.7); Neutrophil % 64.3 % (47-70); Platelet Count 329 K/mm3 (150-450); RBC Distribution Width CV 13.3 % (11.6-14.6); RBC Distribution Width SD 43.2 fl (35.1-43.9); Red Blood Count 5.52 M/mm3 (4.2-5.4); White Blood Count 8.9 K/mm3 (4.4-11.0)
[2021-10-21 17:30] LABS: Anion Gap 8 (5-15); BUN 17 mg/dL (7-18); BUN/Creat Ratio 11.5 RATIO (10-20); Calcium,Total 8.5 mg/dL (8.5-10.1); Chloride 100 mmol/L (98-107); Creatinine, Serum 1.48 mg/dL (0.55-1.02); EST Glomerular Filtration Rate 38 mL/min (>60); Est Glom Filt Rate - Afr Amer 46 mL/min (>60); Glucose 93 mg/dL (74-106); Potassium 3.6 mmol/L (3.5-5.1); Sodium Level 138 mmol/L (136-145)
[2021-10-23 21:07] LABS: QNTFERON TB Mitogen Value > 10.00 IU/mL (.); QNTFERON TB Nil Value 0 IU/mL (.); QNTFERON TB1+ Ag Value 0 IU/mL (.); QNTFERON TB2+ Ag Value 0.01 IU/mL (.)
[2021-10-24 09:13] LABS: QNTIFERON TB Positive Criteria Negative (Negative)
== END | disposition home or self-care (01) ==
PROVIDERS: PCP Internal Medicine
DX: L40.9 Psoriasis, unspecified (principal)
CPT/HCPCS: 36415; 80048; 85025; 86480

== ENCOUNTER → 2022-03-02 | Outpatient (CLI) | payer OTHER, SELFPAY ==
[2022-03-02 12:05] LABS: Absolute Lymphocyte Count 0.95 X10^3/uL (0.83-4.51); Absolute Neutrophil Count 2.8 X10^3/uL (2.0-7.7); Basophil# 0.02 X10^3/uL; Basophil% 0.5 % (0-1); Hematocrit 44.5 % (37-47); Hemoglobin 14.5 g/dL (12.0-15.0); Lymphocyte # 0.95 X10^3/ul (0.83-4.51); Lymphocyte % 22.9 % (19-41); Mean Corp Hgb Conc 32.6 g/dL (32-36); Monocyte# 0.34 X10^3/uL; Monocyte% 8.2 % (0-10); NRBC Flagged by Analyzer 0 % (0-5); Neutrophil # 2.82 X10^3/uL (2.7-7.7); Neutrophil % 68.2 % (47-70); Platelet Count 225 K/mm3 (150-450); RBC Distribution Width CV 13.6 % (11.6-14.6); RBC Distribution Width SD 44.7 fl (35.1-43.9); White Blood Count 4.1 K/mm3 (4.4-11.0)
[2022-03-02 12:42] LABS: ALB/GLOB Ratio 0.9 RATIO (0.9-2.4); AST(SGOT) 53 U/L (15-37); Alanine Aminotransfer ALT/SGPT 62 U/L (13-56); Albumin, Serum 3.2 g/dL (3.2-5.0); Alkaline Phosphatase 88 U/L (45-117); Anion Gap 6 (5-15); BUN 12 mg/dL (7-18); BUN/Creat Ratio 11.8 RATIO (10-20); Calcium,Total 8.9 mg/dL (8.5-10.1); Chloride 90 mmol/L (98-107); Creatinine, Serum 1.02 mg/dL (0.55-1.02); EST Glomerular Filtration Rate 58 mL/min (>60); Est Glom Filt Rate - Afr Amer 71 mL/min (>60); Globulin 3.5 g/dL (2.2-4.2); Glucose 117 mg/dL (74-106); Potassium 3.7 mmol/L (3.5-5.1); Protein, Total 6.7 g/dL (6.4-8.2); Sodium Level 129 mmol/L (136-145)
[2022-03-03 09:37] LABS: BNP,B-Type NATRIURETIC PEPTIDE 195.4 pg/mL (0-100)
== END | disposition home or self-care (01) ==
LOC: BIMLAB 10:32
PROVIDERS: PCP Internal Medicine; Referring Provider Internal Medicine; Visit Provider Internal Medicine
DX: R05.9 Cough, unspecified (principal); N18.30 Chronic kidney disease, stage 3 unspecified; I12.9 Hypertensive chronic kidney disease with stage 1 through stage 4 chronic kidney disease, or unspecified chronic kidney disease
CPT/HCPCS: 36415; 80053; 83880; 85025

== ENCOUNTER → 2022-03-03 | Outpatient (CLI) | payer OTHER, SELFPAY ==
--- NOTE | 2022-03-03 13:51 | RAD_ITS ---
STUDY: X-RAY CHEST REASON FOR EXAM: Female, 61 years old. Cough, Chest Congestion TECHNIQUE: PA and lateral views of the chest. COMPARISON: MayMay 20, 2019 chest x-ray FINDINGS: The lungs are clear and expanded. There is no demonstrated pleural abnormality. Normal size heart. Normal mediastinum and holly. Normal visualized pulmonary arteries. There is mild atherosclerotic tortuosity of the aortic arch and descending thoracic aorta. Normal visualized thoracic spine. Normal visualized ribs, clavicles, and shoulders. There is no demonstrated abnormality of the visualized soft tissue structures of the upper abdomen. RAD/Chest PA and Lateral IMPRESSION: No demonstrated acute cardiopulmonary process. Electronically Signed: Pebbles Vali MD at 18:15 [facility] ,
== END | disposition home or self-care (01) ==
LOC: MTRAD 13:51
PROVIDERS: PCP Internal Medicine; Referring Provider Internal Medicine; Visit Provider Internal Medicine
DX: R05.9 Cough, unspecified (principal)
CPT/HCPCS: 71046

== ENCOUNTER → 2022-03-08 | Outpatient (CLI) | payer OTHER, SELFPAY ==
[2022-03-08 12:52] LABS: AST(SGOT) 40 U/L (15-37); Alanine Aminotransfer ALT/SGPT 58 U/L (13-56); Albumin, Serum 3.9 g/dL (3.2-5.0); Alkaline Phosphatase 94 U/L (45-117); Anion Gap 8 (5-15); BUN 13 mg/dL (7-18); BUN/Creat Ratio 10.2 RATIO (10-20); Calcium,Total 9.4 mg/dL (8.5-10.1); Chloride 91 mmol/L (98-107); Creatinine, Serum 1.27 mg/dL (0.55-1.02); EST Glomerular Filtration Rate 45 mL/min (>60); Est Glom Filt Rate - Afr Amer 55 mL/min (>60); Globulin 3.9 g/dL (2.2-4.2); Glucose 125 mg/dL (74-106); Potassium 3.5 mmol/L (3.5-5.1); Protein, Total 7.8 g/dL (6.4-8.2); Sodium Level 134 mmol/L (136-145)
== END | disposition home or self-care (01) ==
LOC: BIMLAB 10:26
PROVIDERS: PCP Internal Medicine; Referring Provider Internal Medicine; Visit Provider Internal Medicine
DX: E87.1 Hypo-osmolality and hyponatremia (principal)
CPT/HCPCS: 36415; 80053

== ENCOUNTER → 2022-03-16 | Outpatient (CLI) | payer OTHER, SELFPAY ==
[2022-03-16 12:54] LABS: ALB/GLOB Ratio 0.9 RATIO (0.9-2.4); AST(SGOT) 16 U/L (15-37); Alanine Aminotransfer ALT/SGPT 28 U/L (13-56); Albumin, Serum 3.1 g/dL (3.2-5.0); Alkaline Phosphatase 84 U/L (45-117); Anion Gap 3 (5-15); BUN 16 mg/dL (7-18); Calcium,Total 8.8 mg/dL (8.5-10.1); Chloride 99 mmol/L (98-107); Creatinine, Serum 1.07 mg/dL (0.55-1.02); EST Glomerular Filtration Rate 55 mL/min (>60); Est Glom Filt Rate - Afr Amer 67 mL/min (>60); Globulin 3.5 g/dL (2.2-4.2); Glucose 103 mg/dL (74-106); Potassium 3.9 mmol/L (3.5-5.1); Protein, Total 6.6 g/dL (6.4-8.2); Sodium Level 138 mmol/L (136-145)
== END | disposition home or self-care (01) ==
LOC: BIMLAB 09:42
PROVIDERS: PCP Internal Medicine; Referring Provider Internal Medicine; Visit Provider Internal Medicine
DX: R79.89 Other specified abnormal findings of blood chemistry (principal); R74.8 Abnormal levels of other serum enzymes
CPT/HCPCS: 36415; 80053; 83880

== ENCOUNTER → 2022-05-18 | Outpatient (CLI) | payer OTHER, SELFPAY | END | disposition home or self-care (01) | PROVIDERS: PCP Internal Medicine; Referring Provider Internal Medicine Medical Oncology; Visit Provider Internal Medicine Medical Oncology | DX: C56.2 Malignant neoplasm of left ovary (principal) | CPT/HCPCS: 36415 ==

== ENCOUNTER → 2022-06-29 | Outpatient (CLI) | payer OTHER, SELFPAY ==
[2022-06-29 12:49] LABS: Absolute Lymphocyte Count 2.49 X10^3/uL (0.83-4.51); Absolute Neutrophil Count 3.7 X10^3/uL (2.0-7.7); Basophil# 0.06 X10^3/uL; Basophil% 0.9 % (0-1); Eosinophil# 0.14 X10^3/uL; Hematocrit 47.9 % (37-47); Hemoglobin 15.1 g/dL (12.0-15.0); Lymphocyte # 2.49 X10^3/ul (0.83-4.51); Lymphocyte % 35.8 % (19-41); Mean Corp Hgb Conc 31.5 g/dL (32-36); Mean Corpuscular Hgb 29.3 pg (27.0-32.0); Mean Corpuscular Volume 92.8 fL (81-99); Mean Platelet Vol. 11.3 fl (6.2-12.0); Monocyte# 0.54 X10^3/uL; Monocyte% 7.8 % (0-10); NRBC Flagged by Analyzer 0 % (0-5); Neutrophil # 3.71 X10^3/uL (2.7-7.7); Neutrophil % 53.2 % (47-70); Platelet Count 296 K/mm3 (150-450); RBC Distribution Width CV 13.9 % (11.6-14.6); RBC Distribution Width SD 47.2 fl (35.1-43.9); Red Blood Count 5.16 M/mm3 (4.2-5.4)
[2022-06-29 13:21] LABS: ALB/GLOB Ratio 0.9 RATIO (0.9-2.4); AST(SGOT) 13 U/L (15-37); Alanine Aminotransfer ALT/SGPT 18 U/L (13-56); Albumin, Serum 3.4 g/dL (3.2-5.0); Alkaline Phosphatase 78 U/L (45-117); Anion Gap 0 (5-15); BUN 16 mg/dL (7-18); BUN/Creat Ratio 13.8 RATIO (10-20); Chloride 105 mmol/L (98-107); Cholesterol 226 mg/dL (200); Creatinine, Serum 1.16 mg/dL (0.55-1.02); EST Glomerular Filtration Rate 50 mL/min (>60); Est Glom Filt Rate - Afr Amer 61 mL/min (>60); Globulin 3.7 g/dL (2.2-4.2); Glucose 103 mg/dL (74-106); High Density Lipoprotein 64 mg/dL; Potassium 4.2 mmol/L (3.5-5.1); Protein, Total 7.1 g/dL (6.4-8.2); Sodium Level 137 mmol/L (136-145); Triglycerides 106 mg/dL; Very Low Density Lipoprotein 21 mg/dL (5-40)
== END | disposition home or self-care (01) ==
LOC: BIMLAB 10:30
PROVIDERS: PCP Internal Medicine; Referring Provider Internal Medicine; Visit Provider Internal Medicine
DX: E78.5 Hyperlipidemia, unspecified (principal)
CPT/HCPCS: 36415; 80053; 80061; 85025

== ENCOUNTER → 2022-07-28 | Outpatient (CLI) | payer OTHER, SELFPAY ==
--- NOTE | 2022-07-28 15:15 | BI_ITS ---
MAMMOGRAPHY - BILATERAL SCREENING REASON FOR EXAM: Female, 62 years old. Routine annual screening examination. PERTINENT HISTORY: Non-contributory. Past history of ovarian carcinoma. Prior left ultrasound-guided breast biopsy. TECHNIQUE: Digital bilateral breast chantale (3D mammographic acquisition) in the CC and MLO projections. 2-D mediolateral oblique (MLO) and craniocaudad (CC) views of both breasts were obtained. CAD: Full Field Digital Mammography with Computer Added Detection was performed. COMPARISON: Comparison is made with prior study June 01, 2021 and December 13, 2019. FINDINGS: Breast Composition: The breasts are heterogeneously dense, which may obscure small masses. There are no dominant masses or suspicious calcifications. A tissue clip marker is seen in the slightly upper lateral aspect of the left breast from prior ultrasound-guided breast biopsy. There has been no change. No other significant abnormalities are identified. There has been no significant change since the prior study. BI/SCRN MAMM (CAD)W/CHANTALE BILAT IMPRESSION: Stable bilateral screening mammogram. Yearly follow-up mammogram recommended. (A) ASSESSMENT CATEGORY: BIRADS Category 2: Benign. A letter regarding these results will be sent to the patient by the facility within 30 days. Approximately 10% of breast cancers are not detected by mammography. A normal mammogram should not delay biopsy of a clinically suspicious abnormality. [id number] Electronically Signed: Zechariah Gilmore MD at 8:50 EDT ,
--- NOTE | 2022-07-28 15:25 | BD_ITS ---
STUDY: DUAL ENERGY X-RAY ABSORPTIOMETRY / DXA REASON FOR EXAM: Female, 62 years old. Post menopausal TECHNIQUE: Bone Mineral Density (BMD) measurements of lumbar spine and bilateral hips were obtained. COMPARISON: Comparison is made with prior study dated May 14, 2019. FINDINGS: Lumbar Spine (L1-L4): g/cm2 (1.107) / T-score (0.1) / Z-score (1.8) Findings are suggestive of normal bone density with a low fracture risk. Left Femur Total: g/cm2 (0.887) / T-score (-0.4) / Z-score (0.7) Left Femoral Neck: g/cm2 (0.735) / T-score (-1.0) / Z-score (0.4) Right Femur Total: g/cm2 (0.800) / T-score (-1.2) / Z-score (-0.1) Right Femoral Neck: g/cm2 (0.639) / T-score (-1.9) / Z-score (-0.5) The T-Scores on the most recent prior examination were: Lumbar Spine (L1-L4): There has been worsening of bone density since the previous examination. Left Femur Total: which represents a worsening of 3.9%. Right Femur Total: which represents a worsening of 6.2%. BD/Dexa Bone Density Study IMPRESSION: The patient is considered osteopenic as outlined below according to World Ozzie Organization (WHO) criteria with a moderate fracture risk. There has been worsening of bone density since the previous examination. Reference Information: The T-score is the number of standard deviations above or below the standard which is normal for young adults at their peak bone mineral density. The World Health Organization (WHO) interprets the T-scores as follows: Above -1 Normal bone density Between -1 and -2.5 Osteopenia Equal to / or below -2.5 Osteoporosis As a practical clinical guideline, osteopenia may be graded as follows: Mild -1 through -1.5 Moderate -1.6 through -2.0 Severe -2.1 through -2.4 The Z-score is the number of standard deviations above or below age-matched controls. A Z-score of less than -1.5 would be considered abnormal. References: 1. NIH Osteoporosis and Related Bone Diseases www osteo.org 2. International Society for Clinical Densitometry www iscd.org 3. National Osteoporosis Foundation www nof.org Electronically Signed: Zechariah Gilmore MD at 14:53 EDT ,
== END | disposition home or self-care (01) ==
LOC: OPBD 15:13
PROVIDERS: PCP Internal Medicine; Referring Provider Internal Medicine; Visit Provider Internal Medicine
DX: Z78.0 Asymptomatic menopausal state (principal); Z12.31 Encounter for screening mammogram for malignant neoplasm of breast
CPT/HCPCS: 77063; 77067; 77080

== ENCOUNTER → 2022-09-26 | Outpatient (CLI) | payer OTHER, SELFPAY ==
[2022-09-26 16:18] LABS: Cholesterol 241 mg/dL (200); High Density Lipoprotein 66 mg/dL; Triglycerides 174 mg/dL; Very Low Density Lipoprotein 35 mg/dL (5-40)
== END | disposition home or self-care (01) ==
LOC: BIMLAB 14:31
PROVIDERS: PCP Internal Medicine; Referring Provider Internal Medicine; Visit Provider Internal Medicine
DX: E78.5 Hyperlipidemia, unspecified (principal)
CPT/HCPCS: 36415; 80061

== ENCOUNTER → 2022-11-16 | Outpatient (CLI) | payer OTHER, SELFPAY ==
[2022-11-18 16:09] LABS: QNTFERON TB Mitogen Value > 10.00 IU/mL (.); QNTFERON TB Nil Value 0.06 IU/mL (.); QNTFERON TB1+ Ag Value 0.05 IU/mL (.); QNTFERON TB2+ Ag Value 0.06 IU/mL (.); QNTIFERON TB Positive Criteria Negative (Negative)
== END | disposition home or self-care (01) ==
LOC: LAB 15:05
PROVIDERS: PCP Internal Medicine
DX: L40.0 Psoriasis vulgaris (principal); Z79.899 Other long term (current) drug therapy
CPT/HCPCS: 36415; 86480

== ENCOUNTER → 2023-01-05 | Outpatient (CLI) | payer OTHER, SELFPAY ==
[2023-01-05 16:46] LABS: Absolute Neutrophil Count 4.5 X10^3/uL (2.0-7.7); Basophil# 0.05 X10^3/uL; Basophil% 0.7 % (0-1); Eosinophil# 0.07 X10^3/uL; Hematocrit 49.5 % (37-47); Lymphocyte % 29.5 % (19-41); Mean Corp Hgb Conc 32.3 g/dL (32-36); Mean Corpuscular Hgb 29.6 pg (27.0-32.0); Mean Corpuscular Volume 91.7 fL (81-99); Mean Platelet Vol. 10.7 fl (6.2-12.0); Monocyte# 0.41 X10^3/uL; Monocyte% 5.8 % (0-10); NRBC Flagged by Analyzer 0 % (0-5); Neutrophil # 4.47 X10^3/uL (2.7-7.7); Neutrophil % 62.7 % (47-70); Platelet Count 321 K/mm3 (150-450); RBC Distribution Width CV 13.7 % (11.6-14.6); RBC Distribution Width SD 45.9 fl (35.1-43.9); White Blood Count 7.1 K/mm3 (4.4-11.0)
[2023-01-05 17:12] LABS: Anion Gap 5 (5-15); BUN 15 mg/dL (7-18); BUN/Creat Ratio 13.2 RATIO (10-20); Chloride 104 mmol/L (98-107); Creatinine, Serum 1.14 mg/dL (0.55-1.02); EST Glomerular Filtration Rate 51 mL/min (>60); Est Glom Filt Rate - Afr Amer 62 mL/min (>60); Glucose 111 mg/dL (74-106); Potassium 3.9 mmol/L (3.5-5.1); Sodium Level 140 mmol/L (136-145)
== END | disposition home or self-care (01) ==
LOC: BIMLAB 15:17
PROVIDERS: PCP Internal Medicine; Referring Provider Internal Medicine; Visit Provider Internal Medicine
DX: I10 Essential (primary) hypertension (principal)
CPT/HCPCS: 36415; 80048; 85025

== ENCOUNTER → 2023-05-23 | Outpatient (CLI) | payer OTHER, SELFPAY ==
--- NOTE | 2023-05-23 12:23 | CT_ITS ---
HISTORY: Lung cancer screening greater than 20 pk yr hx;current smoker;asymptomatic. TECHNIQUE: Helically acquired images were obtained of the chest without contrast. A radiation dose optimization technique was used for this scan. 514 images. COMPARISON: 09/15/2021. FINDINGS: LARGE AIRWAYS: Patent. LUNGS: Mild emphysema with biapical scarring and small perifissural nodules or scars again seen. No new suspicious nodule or acute alveolar consolidation. PLEURA: No pneumothorax or significant pleural effusion. HEART/PERICARDIUM: Heart within normal limits in size with coronary artery calcification. No pericardial effusion. VESSELS: Thoracic aorta nondilated. Mild atherosclerosis. MEDIASTINUM/ARACELY: No pathologically enlarged adenopathy. UPPER ABDOMEN: Stable left adrenal nodule.. BONES: Mild degenerative change. Chronic mild T11 compression fracture. CT/Low Dose CT Lung Screening IMPRESSION: No significant interval change. Lung-RADS category 2: Continue annual screening with low dose CT. Electronically Signed: Purnima Pimentel MD at 13:00 EST ,
== END | disposition home or self-care (01) ==
LOC: CT 12:23
PROVIDERS: PCP Internal Medicine; Referring Provider Nurse Practitioner Family; Visit Provider Nurse Practitioner Family
DX: Z12.2 Encounter for screening for malignant neoplasm of respiratory organs (principal); Z87.891 Personal history of nicotine dependence
CPT/HCPCS: 71271

== ENCOUNTER → 2023-08-22 | Outpatient (CLI) | payer OTHER, SELFPAY ==
--- NOTE | 2023-08-22 13:59 | BI_ITS ---
MAMMOGRAPHY - BILATERAL SCREENING REASON FOR EXAM: Female, 63 years old. Routine annual screening examination. PERTINENT HISTORY: Non-contributory. History of prior ultrasound-guided left breast biopsy. TECHNIQUE: Digital bilateral breast chantale (3D mammographic acquisition) in the CC and MLO projections. 2-D mediolateral oblique (MLO) and craniocaudad (CC) views of both breasts were obtained. CAD: Full Field Digital Mammography with Computer Added Detection was performed. COMPARISON: Comparison is made with prior study dated July 28, 2022 and June 01, 2021. FINDINGS: Breast Composition: The breasts are heterogeneously dense, which may obscure small masses. There are no dominant masses or suspicious calcifications. There is a 4.7 mm x 4.6 mm well-defined nodule in the slightly inferior central portion of the left breast. Correlation with ultrasound is recommended. A tissue clip marker is seen in the slightly upper lateral aspect of the left breast from prior ultrasound-guided breast biopsy. No other significant abnormalities are identified. BI/SCRN MAMM (CAD)W/CHANTALE BILAT IMPRESSION: 4.7 mm x 4.6 mm well-defined nodule in the slightly inferior central portion of the left breast. Sonographic correlation is recommended. ASSESSMENT CATEGORY: BIRADS Category 0: Incomplete. Need additional imaging evaluation. A letter regarding these results will be sent to the patient by the facility within 30 days. Approximately 10% of breast cancers are not detected by mammography. A normal mammogram should not delay biopsy of a clinically suspicious abnormality. [id number] Electronically Signed: Zechariah Gilmore MD at 14:50 EDT ,
== END | disposition home or self-care (01) ==
LOC: OPBI 13:59
PROVIDERS: PCP Internal Medicine; Referring Provider Internal Medicine; Visit Provider Internal Medicine
DX: Z12.31 Encounter for screening mammogram for malignant neoplasm of breast (principal)
CPT/HCPCS: 77063; 77067

== ENCOUNTER → 2023-08-24 | Outpatient (CLI) | payer OTHER, SELFPAY ==
--- NOTE | 2023-08-24 14:47 | US_ITS ---
STUDY: ULTRASOUND BREAST - LEFT REASON FOR EXAM: Female, 63 years old. Abnormal screening mammogram. TECHNIQUE: Axial and longitudinal images of the LEFT breast were performed with a high resolution ultrasound transducer. # OF IMAGES: 20 COMPARISON: Comparison is made with prior mammogram dated August 22, 2023 and prior sonogram of the left breast dated December 18, 2019. FINDINGS: LEFT Breast: The mammographic abnormality corresponds to a 4 mm x 5 mm x 3 mm cyst at the 5:00 position of the breast at 5 cm from the nipple. US/Breast Limited Unilateral IMPRESSION: The mammographic abnormality corresponds to a 4 mm x 5 mm x 3 mm cyst at the 5:00 position of the breast at 5 cm from the nipple. ASSESSMENT CATEGORY: BIRADS Category 2: Benign. A letter regarding these results will be sent to the patient by the facility within 30 days. Electronically Signed: Zechariah Gilmore MD at 8:48 EDT ,
== END | disposition home or self-care (01) ==
LOC: OPUS 14:45
PROVIDERS: PCP Internal Medicine; Referring Provider Internal Medicine; Visit Provider Internal Medicine
DX: N60.02 Solitary cyst of left breast (principal)
CPT/HCPCS: 76642

== ENCOUNTER → 2024-02-21 | Outpatient (CLI) | payer OTHER, SELFPAY ==
--- NOTE | 2024-02-21 14:25 | RAD_ITS ---
STUDY: X-RAY - LUMBAR SPINE REASON FOR EXAM: Female, 63 years old. Lumbar radiculopathy TECHNIQUE: 5 view(s) of the lumbar spine were obtained. COMPARISON: 01/09/2008 FINDINGS: Normal lumbar lordosis. There is no substantial scoliosis. There is a normal alignment of the vertebrae. There is multilevel endplate spondylosis of the lumbar vertebrae. There is multi-level degenerative disc disease with multi-level disc space narrowing. There is multilevel facet hypertrophy. The soft tissue structures are unremarkable. RAD/L/S Spine Min 4 Views IMPRESSION: Degenerative changes of the spine, as detailed above. MRI may be useful. Electronically Signed: Bala Reeves MD at 10:56 EST ,
== END | disposition home or self-care (01) ==
LOC: MTRAD 14:17
PROVIDERS: PCP Internal Medicine; Referring Provider Internal Medicine; Visit Provider Internal Medicine
DX: M54.16 Radiculopathy, lumbar region (principal)
CPT/HCPCS: 72110

== ENCOUNTER → 2024-05-01 | Outpatient (CLI) | payer OTHER, SELFPAY ==
[2024-05-01 16:54] LABS: Absolute Lymphocyte Count 2.35 X10^3/uL (0.83-4.51); Absolute Neutrophil Count 3.8 X10^3/uL (2.0-7.7); Basophil# 0.06 X10^3/uL; Basophil% 0.9 % (0-1); Eosinophil# 0.14 X10^3/uL; Hematocrit 49.1 % (37-47); Hemoglobin 15.9 g/dL (12.0-15.0); Lymphocyte # 2.35 X10^3/ul (0.83-4.51); Lymphocyte % 33.8 % (19-41); Mean Corp Hgb Conc 32.4 g/dL (32-36); Mean Corpuscular Hgb 29.2 pg (27.0-32.0); Mean Corpuscular Volume 90.1 fL (81-99); Mean Platelet Vol. 11.3 fl (6.2-12.0); Monocyte# 0.56 X10^3/uL; Monocyte% 8.1 % (0-10); NRBC Flagged by Analyzer 0 % (0-5); Neutrophil # 3.82 X10^3/uL (2.7-7.7); Neutrophil % 54.9 % (47-70); Platelet Count 313 K/mm3 (150-450); RBC Distribution Width CV 13.2 % (11.6-14.6); RBC Distribution Width SD 43.4 fl (35.1-43.9); Red Blood Count 5.45 M/mm3 (4.2-5.4)
[2024-05-01 17:18] LABS: AST(SGOT) 11 U/L (15-37); Alanine Aminotransfer ALT/SGPT 19 U/L (13-56); Albumin, Serum 3.7 g/dL (3.2-5.0); Alkaline Phosphatase 94 U/L (45-117); Anion Gap 4 (5-15); BUN 16 mg/dL (7-18); BUN/Creat Ratio 12.7 RATIO (10-20); Calcium,Total 8.9 mg/dL (8.5-10.1); Chloride 105 mmol/L (98-107); Cholesterol 173 mg/dL (200); Creatinine, Serum 1.26 mg/dL (0.55-1.02); EST Glomerular Filtration Rate 45 mL/min (>60); Est Glom Filt Rate - Afr Amer 55 mL/min (>60); Globulin 3.8 g/dL (2.2-4.2); Glucose 92 mg/dL (74-106); High Density Lipoprotein 71 mg/dL; Potassium 3.8 mmol/L (3.5-5.1); Protein, Total 7.5 g/dL (6.4-8.2); Sodium Level 141 mmol/L (136-145); Triglycerides 206 mg/dL; Very Low Density Lipoprotein 41 mg/dL (5-40)
[2024-05-01 17:21] LABS: Vitamin D,25 Hydroxy 12.7 ng/mL
== END | disposition home or self-care (01) ==
LOC: BIMLAB 15:51
PROVIDERS: PCP Internal Medicine; Referring Provider Internal Medicine; Visit Provider Internal Medicine
DX: M85.80 Other specified disorders of bone density and structure, unspecified site (principal); E78.5 Hyperlipidemia, unspecified; J06.9 Acute upper respiratory infection, unspecified
CPT/HCPCS: 36415; 80053; 80061; 82306; 85025; 87631

== ENCOUNTER 2024-05-16 16:30 | Outpatient (RCR) | payer OTHER, SELFPAY ==
--- NOTE | 2024-04-17 14:59 | HP.PTEVAL_ITS ---
Patient's Visit Information Visit Information Visit Information: DANICA BOBBY is a 63 year old F referred to Physical Therapy by Dr. John Eaton MD with a diagnosis of LUMBAR RADICULOPATHY. Date of Evaluation: 04/17/24 Physical Therapist: Tu Gutierrez, PT, Cert MDT, OCS Visit Plan Frequency: 2x /Week Duration: 4 Weeks Plan: PT INTERVENTIONS AQUATIC THERAPY FOR DLS ,POSTURAL EX'S ,LE FLEXABILITY ,STRENGTHENING BLE AND ACTIVITY MODIFICATION Subjective Subjective: This 63 y/o female presents to physical therapy lumbar radiculopathy . Patient has h/o lumbar pain~ 15 years ago. Patient had pain 2014 and MRI showed HNP L4-5 ,but had other health concerns with ovarian CA.Most recently return in Jan 2024 ,see chiropractor but not better . Then seen DR de la cruz and had x-rays and showed DDD and recommended PT and pain management. Pain management but needs MRI and prescribed pain medication gabapentin ,tramadol. Patient located right lumbar and lateral leg hip to calf to foot. Patient symptoms describe as ache. Aggravating factors lifting ,standing ,walking extended . Alleviating factor rest. Coughing.sneezing +. c/o paresthesia/tingl ing in feet. Patient although has neuropathy. Patient sleep is affects' by pain. Patient had episode sleeping in recliner. Patient condition affects QOL and function/gait. Patient goals to decrease pain. SOCAIL: VOACTION: [employer]ANCE [employer]IOR [employer]GER INSURANCE Pain Right Back: Pain Intensity (Out of 10): 6 Pain Intensity Range: 10 Right Lower Extremity: Pain Intensity (Out of 10): 4 Pain Intensity Range: 10 Objective Objective: POSTURE: mild forward posture GAIT: reciprocal pattern antalgic gait right side slow [place] NEURO: denies paresthesia/tingling ,reflexes L3-4,L4-5,L5-S1 1/3 SYMMETRIES: align PALAPTION: unremarkable LUMBAR ROM: flexion min loss ,side glides mod loss pain right side ,extension mod severe loss MMT: quads/hams /hip flexion 4-/5 ,ankle 4-/5 right Decrease heel walking Special Tests L/S Slump test left side: Negative L/S Slump test right side: Negative L/S Left Straight Leg Raise: Negative L/S Right Straight Leg Raise: Negative Balance/Special Test Scores Oswestry Low Back Score: 21 Goals Goal 1:: Patient to be I with HEP and Aquatic therapy program Goal Time Frame: 4-6 Weeks Goal 2:: Patient to improve lumbar ROM for function of recovery for ADLS Goal Time Frame: 4-6 Weeks Goal 3:: Patient to improve strength of BLE by 4/5 to improve gait Goal Time Frame: 4-6 Weeks Goal 4:: Patient to improve back oswestry score by 5 points to improve QOL and fucntion Goal Time Frame: 4-6 Weeks Goal 5:: Patient to demonstrate 40% improvement with less pain and improved function Goal Time Frame: 4-6 Weeks Rehabilitation Potential Physical Therapy Diagnosis: This patient has lumbar radiculopathy and has h/o HNP L4-5 and current pain with positioning and motion testing worse with walking standing extended distances thus benefit from Aquatic therapy and PT Rehabilitation Potential: Fair Anticipated Interventions Patient/Client Instruction: Educate patient on: Condition and Plan of Care For the Purpose of:: To decrease pain, To increase ROM, To improve muscle performance and motor function, To improve ability to perform ADL's, To increase tolerance to activity/condition/position, To improve ability of physical actions for home/community/work/leisure, To improve gait and locomotor functions, To improve health of tissue, To decrease soft tissue restriction, To increase flexibility/ROM, To improve health and function and To improve tolerance to ADL's Therapeutic Exercise to Include: Strength training, Endurance training, Balance training, Body mechanics, Postural training, Flexibilty training, In an aquatic setting and Dynamic Lumbar Stabilization Comment: BLE For the Purpose of:: To decrease pain, To increase ROM, To improve muscle performance and motor function, To improve ability to perform ADL's, To increase tolerance to activity/condition/position, To improve ability of physical actions for home/community/work/leisure, To improve gait and locomotor functions, To improve health of tissue, To decrease soft tissue restriction and To increase flexibility/ROM Text: Thank you for the opportunity to evaluate your patient. For Medicare and Medicare HMO plans, please review the plan of care and approve it. It will need to be FAXED BACK to us at [phone] for Medicare purposes. For Medicare only, by signing this I certify the plan of care. Please let me know if there are questions or concerns regarding this plan of care. Physician Signature: Date:
--- NOTE | 2024-07-24 16:02 | HP.PT.NRP ---
Patient Information Patient Information: DANICA BOBBY was seen in my office for initial evaluation on 04/17/24. The following Plan of Care was established for this patient: POC Established Initial Frequency: 2x /Week Initial Duration: 4 Weeks Anticipated Interventions Patient/Client Instruction: Educate patient on: Condition and Plan of Care For the Purpose of:: To decrease pain, To increase ROM, To improve muscle performance and motor function, To improve ability to perform ADL's, To increase tolerance to activity/condition/position, To improve ability of physical actions for home/community/work/leisure, To improve gait and locomotor functions, To improve health of tissue, To decrease soft tissue restriction, To increase flexibility/ROM, To improve health and function and To improve tolerance to ADL's Therapeutic Exercise to Include: Strength training, Endurance training, Balance training, Body mechanics, Postural training, Flexibilty training, In an aquatic setting and Dynamic Lumbar Stabilization For the Purpose of:: To decrease pain, To increase ROM, To improve muscle performance and motor function, To improve ability to perform ADL's, To increase tolerance to activity/condition/position, To improve ability of physical actions for home/community/work/leisure, To improve gait and locomotor functions, To improve health of tissue, To decrease soft tissue restriction and To increase flexibility/ROM Last Seen Last Seen: This patient was last seen in our office . Pertinent comments regarding their Physical therapy will appear below: Patient was seen forT for Aquatics Therapy for lumbar pain 5 visits At this point I will be discontinuing this patient from physical therapy. I would be happy to see this patient again in the future if found appropriate by the physician. Thank you! Tu Gutierrez, PT, Cert MDT, OCS Balance/Gait/Functional tests Balance/Special Test Scores Oswestry Low Back Score: 21
== END 2024-05-16 19:00 | disposition home or self-care (01) ==
LOC: PT 16:30
PROVIDERS: PCP Internal Medicine; Referring Provider Anesthesiology; Visit Provider Anesthesiology
DX: M54.10 Radiculopathy, site unspecified (principal)
CPT/HCPCS: 97113; 97162

== ENCOUNTER → 2024-06-19 | Outpatient (CLI) | payer MEDICARE, SELFPAY ==
--- NOTE | 2024-06-19 11:11 | CT_ITS ---
PROCEDURE: ABDOMEN/PELVIS WITH CONTRAST 06/19/2024 REASON FOR EXAM: ABD PAIN/HX OF CANCER TECHNIQUE: CT abdomen and pelvis was performed with IV contrast. Multiplanar reformats were generated.. PATIENT PREPARATION: Per protocol ORAL CONTRAST TYPE: Readi-CAT. AMOUNT: Information not provided. CONTRAST: Isovue-300 VOLUME: 99mL One or more dose reduction techniques were used (e.g., Automated exposure control, adjustment of the mA and/or kV according to patient size, use of iterative reconstruction technique. RADIATION DOSE SUMMARY: CTDlvol: 16.62+ 21.19 mGy DLP: 1046 mGycm COMPARISON: 09/15/2021 FINDINGS: Mild motion limitation through the lung bases. Lung bases: Unremarkable. Liver: Similar tiny hypodensity too small to characterize likely cysts or hemangioma. Likely steatosis along the anterior falciform, normal variant. Spleen: Unremarkable. Gallbladder: Unremarkable. Pancreas: Unremarkable. Adrenals: Very slowly enlarging now 2.4 cm indeterminate LEFT adrenal nodule, previously 2.2 cm 09/15/2021 and 2.0 cm 05/20/2019. Kidneys: Unremarkable. Bowel: Focal wall thickening versus underdistention along the gastric body. Diverticulosis. Normal caliber appendix. Lymph nodes: Unremarkable. Vasculature: Atherosclerosis. Borderline mild ectasia of the infrarenal abdominal aorta to 2.5 x 2.5 cm. Peritoneum: Unremarkable. Bladder: Underdistended and suboptimally evaluated, grossly unremarkable. Reproductive Organs: Hysterectomy. Ovaries are not well seen and may also be surgically absent. Body Wall: Tiny fat containing umbilical/periumbilical hernias. Bones: Demineralization. Multilevel spondylosis. Slightly increased mild T11 superior endplate compressive deformity since 09/15/2021. Increasing degenerative changes at the pubic symphysis. 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 CT/Abdomen/Pelvis WITH Contrast IMPRESSION: 1. Slightly increased mild T11 superior endplate compressive deformity since . Correlate with history and point tenderness. 2. Mild focal gastric wall thickening versus underdistention, may reflect peris talsis however this is not definite. Recommend clinical follow-up such as a follow-up CT or EGD to exclude underlying gastric wall lesion. 3. Borderline mild abdominal aortic ectasia to 2.5 cm. Recommend follow-up in 5 years per 2013 ACR recommendations. 4. Extremely slowly enlarging now 2.4 cm indeterminate LEFT adrenal nodule sinc e earliest exam of 06/07/2019, suggesting a benign/indolent etiology. 5. Diverticulosis without definite diverticulitis. 6. Additional description as above. Reading Location: [id number]
== END | disposition home or self-care (01) ==
LOC: CT 11:03
PROVIDERS: PCP Internal Medicine; Referring Provider Internal Medicine Medical Oncology; Visit Provider Internal Medicine Medical Oncology
DX: R10.30 Lower abdominal pain, unspecified (principal); C56.2 Malignant neoplasm of left ovary
CPT/HCPCS: 74177

== ENCOUNTER → 2024-07-30 | Outpatient (CLI) | payer MEDICARE, SELFPAY ==
--- NOTE | 2024-07-30 13:20 | BD_ITS ---
PROCEDURE: DEXA BONE DENSITY STUDY 07/30/2024 REASON FOR EXAM: OSTEOPENIA F, age 64 y/o . Postmenopausal. TECHNIQUE: DXA scan of sites with data reported below. REFERENCE LINKS: [facility] Adult Positions COMPARISON: Prior study dated May 14, 2019. FINDINGS: BMD and T-SCORES Lumbar spine: 1.059 g/cm2, T-score 0.1 Levels: L1 through L4 Change from prior: Loss of 6.9%. Left femoral neck: 0.682 g/cm2, T-score -1.5 Femoral neck comparison data not recommended for monitoring change. Left total hip: 0.859 g/cm2, T-score -0.7 Change from prior: Loss of 3.1%. Right femoral neck: 0.747 g/cm2, T-score -0.9 Femoral neck comparison data not recommended for monitoring change. Right total hip: 0.844 g/cm2, T-score -0.8 Change from prior: Improvement by 5.6%. The World Health Organization has defined the following categories based on bone density: Normal bone density: T-score equal to or greater than -1.0 Osteopenia: T-score between -1.0 and -2.5 Osteoporosis: T-score equal to or less than -2.5 The patient does meet the pharmacological treatment recommendations for prevention of osteoporosis. BD/Dexa Bone Density Study IMPRESSION: OSTEOPENIA. Recommend follow-up as clinically warranted. Reading Location: [id number]
== END | disposition home or self-care (01) ==
LOC: OPBD 13:16
PROVIDERS: PCP Internal Medicine; Referring Provider Internal Medicine; Visit Provider Internal Medicine
DX: M81.0 Age-related osteoporosis without current pathological fracture (principal)
CPT/HCPCS: 77080

== ENCOUNTER → 2024-08-10 | Outpatient (CLI) | payer MEDICARE, SELFPAY ==
--- NOTE | 2024-08-10 11:45 | MRI_ITS ---
PROCEDURE: SPINE LUMBAR (ROUTINE) 08/10/2024 REASON FOR EXAM: LUMBAR RAD TECHNIQUE: Multiplanar and multisequence images were obtained without IV contrast administration. Axial and sagittal T1 and T2 weighted images were obtained. Fat suppressed images were also obtained. COMPARISON: None. FINDINGS: Moderate diffuse spondylotic changes. Findings are demonstrated by multifocal disc dehydration, disc space narrowing, osteophyte formation and degenerative endplate changes. Moderate chronic changes of Baastrup's disease. There is normal signal intensity from the visualized bone marrow without evidence of replacement or acute fracture. The conus is unremarkable. Normal lumbar lordosis. The vertebral alignment is within normal limits. Evaluation of the individual levels revealed the following: L5-S1: There is mild diffuse disc bulge. Post broad-based right foraminal disc protrusion measuring 2.7 mm. Another superimposed broad-based left foraminal disc protrusion measuring 4.6 mm. The spinal canal is not narrowed. There is mild right and moderate left neural foramina narrowing. L4-5: There is mild diffuse disc bulge. Superimposed left paracentral disc extrusion measuring 5.8 mm. Bilateral facet joint arthropathy and ligamentum flavum hypertrophy. The spinal canal is not narrowed. There is moderate right and mild left neural foramina narrowing. L3-4: There is mild diffuse disc bulge. Superimposed broad-based right paracentral disc protrusion measuring 4.6 mm. The spinal canal is not narrowed. There is mild bilateral neural foramina narrowing. L2-3: There is mild diffuse disc bulge. Superimposed right paracentral disc extrusion measuring 1.2 x 0.6 cm in its largest craniocaudal and anteroposterior dimensions respectively. Cranial subligamentous slippage of the herniated disc without sequestration. The spinal canal is not narrowed. There is mild bilateral neural foramina narrowing. L1-2: There is moderate diffuse disc bulge. The spinal canal is not narrowed. There is moderate bilateral neural foramina narrowing. Normal visualized paraspinous soft tissue structures. 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 Associated scalloping of the corresponding sacral cortex, benign chronic finding. MRI/Spine Lumbar (Routine) IMPRESSION: Spondylosis. Degenerative disc disease. Reading Location[facility] [id number]
== END | disposition home or self-care (01) ==
LOC: MRI 11:02
PROVIDERS: PCP Internal Medicine; Referring Provider Anesthesiology; Visit Provider Anesthesiology
DX: M54.16 Radiculopathy, lumbar region (principal)
CPT/HCPCS: 72148

== ENCOUNTER → 2024-08-21 | Outpatient (CLI) | payer MEDICARE, SELFPAY ==
[2024-08-21 13:09] LABS: Anion Gap 9 (5-15); BUN 17 mg/dL (4-19); BUN/Creat Ratio 16.4 RATIO (10-20); Calcium,Total 9.3 mg/dL (7.6-11.0); Carbon Dioxide 26.6 mmol/L (21.0-32.0); Chloride 103 mmol/L (98-108); Creatinine, Serum 1.03 mg/dL (0.70-1.20); EST Glomerular Filtration Rate 60 (>60); Glucose 90 mg/dL (70-99); Sodium Level 139 mmol/L (133-145); Vitamin D,25 Hydroxy 51.9 ng/mL (30-100)
== END | disposition home or self-care (01) ==
LOC: BIMLAB 09:19
PROVIDERS: PCP Internal Medicine; Referring Provider Internal Medicine; Visit Provider Internal Medicine
DX: M85.80 Other specified disorders of bone density and structure, unspecified site (principal); I10 Essential (primary) hypertension
CPT/HCPCS: 36415; 80048; 82306

== ENCOUNTER → 2024-09-10 | Outpatient (CLI) | payer MEDICARE, SELFPAY ==
--- NOTE | 2024-09-10 14:45 | BI_ITS ---
EXAM: SCRN MAMM (CAD)W/CHANTALE BILAT DATE: 09/10/2024 CLINICAL HISTORY: F, Age 64 y/o , BREAST CANCER SCREENING TECHNIQUE: SCRN MAMM (CAD)W/CHANTALE BILAT COMPARISON: Prior exam(s) were compared FINDINGS: TISSUE DENSITY: The breast tissue is heterogeneously dense, which may obscure small masses. Bilateral Breast Mammographic Findings: Right breast: There is a focal asymmetry in the lower-inner right breast at mid depth. Left breast: No suspicious masses, calcifications or other abnormalities are identified. BI/SCRN MAMM (CAD)W/CHANTALE BILAT IMPRESSION: Additional diagnostic imaging is recommended of the right breast with diagnosti c right breast mammography and ultrasound. No mammographic evidence of malignancy in the left breast OVERALL FINAL ASSESSMENT BI-RADS 0: INCOMPLETE - NEED ADDITIONAL IMAGING EVALUATION. RECOMMENDATION: Additional Views/call backs A letter with findings and recommendations will be mailed to the patient. Reading Location: [facility]
== END | disposition home or self-care (01) ==
LOC: OPBI 14:35
PROVIDERS: PCP Internal Medicine; Referring Provider Internal Medicine; Visit Provider Internal Medicine
DX: Z12.31 Encounter for screening mammogram for malignant neoplasm of breast (principal)
CPT/HCPCS: 77063; 77067

== ENCOUNTER → 2024-09-24 | Outpatient (CLI) | payer MEDICARE, SELFPAY ==
--- NOTE | 2024-09-24 09:27 | BI_ITS ---
EXAM: DIAG MAMM W/CAD, UNILAT 09/24/2024 CLINICAL HISTORY: F, Age 64 y/o , ABN MAMM TECHNIQUE: Compression spot views of the inferior medial aspect of the right breast were obtained.. COMPARISON: Prior exam(s) dated September 10, 2024.. FINDINGS: TISSUE DENSITY: The breasts are heterogeneously dense, which may obscure small masses. Unilateral Right Breast Mammographic Findings: Persistent tiny nodular density seen in the medial inferior aspect of the breast. Sonographic correlation recommended. BI/DIAG MAMM W/CAD, UNILAT IMPRESSION: Persistent tiny nodular density seen in the inferior medial aspect of the right breast as described. Sonographic correlation recommended. OVERALL FINAL ASSESSMENT BI-RADS 0: INCOMPLETE - NEED ADDITIONAL IMAGING EVALUATION. RECOMMENDATION: Ultrasound Recommended A letter with findings and recommendations will be mailed to the patient. Reading Location: [place] [id number]
--- NOTE | 2024-09-24 09:27 | US_ITS ---
PROCEDURE: BREAST LIMITED UNILATERAL 09/24/2024 REASON FOR EXAM: F, Age 64 y/o , ABN MAMM COMPARISON: Prior mammogram done earlier in the day.. TECHNIQUE: BREAST LIMITED UNILATERAL FINDINGS: The retroareolar region of the breast was examined with ultrasound. There is a 4 mm x 4 mm x 3 mm cyst in the retroareolar region of the breast. This is at the 4 o'clock position of the breast at 2 cm from the nipple. There is also evidence of a septated cyst at the 4 o'clock position of the breast at 1 cm from the nipple measuring 8 mm x 5 mm x 4 mm. US/Breast Limited Unilateral IMPRESSION: There are 2 adjacent small cysts in the retroareolar region of the breast. BI-RADS 3: PROBABLY BENIGN. RECOMMENDATION: 6 Month Follow-up Reading Location: [place] [id number]
== END | disposition home or self-care (01) ==
PROVIDERS: PCP Internal Medicine; Referring Provider Internal Medicine; Visit Provider Internal Medicine
DX: R92.8 Other abnormal and inconclusive findings on diagnostic imaging of breast (principal)
CPT/HCPCS: 76642; 77065

== ENCOUNTER → 2024-12-10 | Outpatient (CLI) | payer MEDICARE, SELFPAY ==
--- NOTE | 2024-12-10 13:36 | CT_ITS ---
PROCEDURE: LOW DOSE CT LUNG SCREENING 12/10/2024 REASON FOR EXAM: LUNG CANCER SCREENING Current smoker. Patient has smoked 3/4 pack per day for 48 years. TECHNIQUE: Procedure Code: [id number] Modality: CT Procedure: LOW DOSE CT LUNG SCREENING Coronal and Sagittal reconstruction series were provided. One or more dose reduction techniques were used (e.g., Automated exposure control, adjustment of the mA and/or kV according to patient size, use of iterative reconstruction technique). REFERENCE LINK: [facility] [employer] Lung-RADS RADIATION DOSE SUMMARY: CTDlvol: 4.02 mGy DLP: 135.92 mGycm COMPARISON: Prior study dated May 23, 2023. FINDINGS: PULMONARY NODULES: (Only nodules >3mm are reported) Nodules described below are on series 1 unless otherwise specified. Pulmonary Nodules: No suspicious nodules are seen. Hardware:None Lymph Nodes:Small benign-appearing mediastinal lymph nodes. Heart and Vasculature:The heart is nonenlarged.Atherosclerotic calcifications of the thoracic aorta. Thoracic aorta and pulmonary arteries have normal contours; noncontrast technique limits evaluation. Coronary Artery Calcifications: Present Lungs and Airways: Mild emphysematous changes are present. Stable scarring at the lung apices and medial aspect of the left upper lobe. Pleura:No pleural effusions. Upper Abdomen:Stable left adrenal nodule suggestive of adenoma. Bones:Stable wedging of the T11 vertebrae. CT/Low Dose CT Lung Screening IMPRESSION: Stable examination. Coronary artery calcification (CAC) is is present Lung-RADS Category: 2 BENIGN (BASED ON IMAGING FEATURES OR INDOLENT BEHAVIOR). RECOMMEND 12-MONTH SCREENING LDCT. Other Significant Findings: Reading Location: [facility]
== END | disposition home or self-care (01) ==
LOC: CT 13:35
PROVIDERS: PCP Internal Medicine; Referring Provider Nurse Practitioner Family; Visit Provider Nurse Practitioner Family
DX: Z12.2 Encounter for screening for malignant neoplasm of respiratory organs (principal); Z87.891 Personal history of nicotine dependence
CPT/HCPCS: 71271

== ENCOUNTER → 2025-01-10 | Outpatient (CLI) | payer MEDICARE, SELFPAY ==
[2025-01-10 18:29] LABS: Hematocrit 48.3 % (37-47); Hemoglobin 15.9 g/dL (12.0-15.0); Immature Granulocytes Count 0.010 X10^3/uL (0.0-0.0); Mean Corp Hgb Conc 32.9 g/dL (32-36); Mean Corpuscular Volume 89.9 fL (81-99); Mean Platelet Vol. 11.4 fl (6.2-12.0); NRBC Flagged by Analyzer 0 % (0-5); Platelet Count 273 K/mm3 (150-450); RBC Distribution Width CV 13.8 % (11.6-14.6); RBC Distribution Width SD 45.4 fl (35.1-43.9); Red Blood Count 5.37 M/mm3 (4.2-5.4); White Blood Count 6.2 K/mm3 (4.4-11.0)
[2025-01-10 19:03] LABS: AST(SGOT) 17 U/L (<=31); Alanine Aminotransfer ALT/SGPT 12 U/L (<=34); Albumin, Serum 4.0 g/dL (3.4-4.8); Alkaline Phosphatase 85 U/L (35-104); Anion Gap 12 (5-15); BUN 14 mg/dL (4-19); BUN/Creat Ratio 13.2 RATIO (10-20); Calcium,Total 9.2 mg/dL (7.6-11.0); Carbon Dioxide 27.5 mmol/L (21.0-32.0); Chloride 102 mmol/L (98-108); Cholesterol 202 mg/dL (<=200); Globulin 3.0 g/dL (2.2-4.2); Glucose 66 mg/dL (70-99); Low Density Lipoprotein Calc. 115 mg/dL; Potassium 3.7 mmol/L (3.3-5.1); Triglycerides 138 mg/dL; Very Low Density Lipoprotein 28 mg/dL (5-40); cholesterol:hdl ratio screen 3.20
== END | disposition home or self-care (01) ==
LOC: MTLAB 14:00
PROVIDERS: PCP Internal Medicine; Referring Provider Internal Medicine; Visit Provider Internal Medicine
DX: K21.9 Gastro-esophageal reflux disease without esophagitis (principal); I10 Essential (primary) hypertension; E78.5 Hyperlipidemia, unspecified
CPT/HCPCS: 36415; 80053; 80061; 85025